=== PATIENT | male | born 1945 | race Caucasian/White ===

== ENCOUNTER → 2022-01-03 15:28 | Outpatient (BNVA) | payer MEDICARE, OTHER, SELFPAY | PROVIDERS: Family Provider Family Medicine; PCP Family Medicine; Referring Provider Family Medicine; Visit Provider Specialist | DX: S82.841A Displaced bimalleolar fracture of right lower leg, initial encounter for closed fracture (principal); S82.201A Unspecified fracture of shaft of right tibia, initial encounter for closed fracture; S82.435A Nondisplaced oblique fracture of shaft of left fibula, initial encounter for closed fracture; X58.XXXA Exposure to other specified factors, initial encounter; Z20.822 Contact with and (suspected) exposure to COVID-19 | CPT/HCPCS: 73590; 73610; 87635 ==

== ENCOUNTER 2022-01-07 08:46 | Day surgery (SDC) | payer MEDICARE, OTHER, SELFPAY ==
[2022-01-06 15:21] VITALS: BMI 27.1
[2022-01-07] VITALS (7 sets, daily range): BP systolic 89–147; BP diastolic 57–83; PULSE 61–66; RESP 16–18; TEMP 36.1–36.6; O2SAT 91–96
--- NOTE | 2022-01-07 | XR_ITS ---
WS: [id number] Exam: XR ankle RT 2V [id number] Date/Time of Exam: 01/07/2022 12:00 AM Reason For Exam: Bimalleolar right ankle fracture AP and lateral intraoperative images of the right ankle are submitted for evaluation. There is plate and screw fixation involving a fracture of the lower fibula. The fracture appears to b e in satisfactory position for healing. Again noted is a comminuted fracture of the medial malleolus. There is asymmetry of the ankle mortise. Pre-existing hardware seen in the lower tibia at the site of the a healed fracture.
--- NOTE | 2022-01-07 | SCC_ITS ---
Procedure done: Takedown malunion right fibula fracture with open reduction internal fixation 93.7 seconds of fluoroscopic guidance, for a cumulative dose of 1.76 mGy, was provided to Dr. Byrd by the radiology department. C-arm images of the right ankle were saved for the patient's permanent record. [facility]
[2022-01-07] MEDS: CELEcoxib 200 mg Capsule 400 MG PO (09:57)
[2022-01-07] MEDS: sodium chloride 0.9% 1,000 ML 30 ML IV (09:58)
[2022-01-07] MEDS: acetaminophen 1,000 MG/100 ML PIGGYBACK 400 MG IV (09:58)
--- NOTE | 2022-01-07 10:00 | P.HPUD_ITS ---
Surgery/Procedure H&P Update DATE OF PROCEDURE: January 07, 2022 DATE H&P PERFORMED: 01/03/22 H&P UPDATE INFORMATION: I have reviewed H&P completed within last 30 days, I have examined patient prior to procedure, No changes to prior documentation and H&P is in [facility] EMR on date indicated PREOP DIAGNOSIS: Right bimalleolar ankle fracture PLANNED PROCEDURE: Operation Date: 01/07/22 11:00 Proposed Procedures p ORIF Bimalleolar right ankle with possible hardware removal 38041/s82.841(Right) - Coby Byrd MD Related Problem List Diagnoses (1) Bimalleolar fracture of right ankle: Qualifiers: Encounter type: initial encounter Fracture type: closed Qualified Code(s): S82.841A - Displaced bimalleolar fracture of right lower leg, initial encounter for closed fracture
[2022-01-07 10:04] LABS: Add Urine Microscopic? NO; Charge for UA Resulting for Rev
[2022-01-07 10:07] LABS: Basophils # 0.1 10^3/uL (0.0-0.1); Basophils % 1.5 %; Eosinophils # 0.4 10^3/uL (0.0-0.8); Eosinophils % 6.8 %; Hematocrit 41.4 % (42.0-52.0); Hemoglobin 13.5 g/dL (11.7-16.6); Lymphocytes # 1.1 10^3/uL (0.8-4.8); Lymphocytes % 20.3 %; Mean Corpuscular HGB Conc 32.6 g/dL (30.0-36.0); Mean Corpuscular Hemoglobin 32.6 pg (28.0-34.0); Mean Platelet Volume 10.5 fL (7.4-10.4); Monocytes # 0.7 10^3/uL (0.2-0.9); Monocytes % 12.2 %; Neutrophils # 3.22 10^3/uL (1.8-7.7); Neutrophils % 58.8 %; Nucleated Red Blood Cells % 0 %; Platelet Count 235 10^3/cmm (130-400); Red Blood Count 4.14 10^6/uL (4.1-5.3); Red Cell Distribution Width 12.4 % (12.1-15.1); White Blood Count 5.5 10^3/uL (4.0-10.0)
[2022-01-07 10:21] LABS: Bilirubin Urine Neg (Negative); Blood Urine Neg (Negative); Glucose Urine UA Norm (Normal); Ketones Urine Negative (Negative); Leukocyte Esterase Urine Negative (Negative); Nitrate Urine Negative (Negative); Protein Urine Neg (Negative); Urine Appearance Clear (CLEAR); Urine Color Yellow (Yellow); Urobilinogen Urine Norm (Negative); pH Urine 5 (5-7)
[2022-01-07 10:27] LABS: Alanine Aminotransferase 27 U/L (0-41); Albumin Level 4.2 g/dL (3.5-5.2); Alkaline Phosphatase 144 IU/L (40-130); Anion Gap 17.6 (5-19); Aspartate Amino Transferase 28 U/L (0-40); Blood Urea Nitrogen 20 mg/dL (8-23); Calcium 9.6 mg/dL (8.5-10.5); Carbon Dioxide 24 mmol/L (22-29); Chloride 104 mmol/L (98-107); Creatinine Clr Calc Pharmacy 92.3088; Globulin 2.9 g/dL (1.3-4.6); Glucose 94 mg/dL (65-115); Osmolality Calculated 294 mOsm/kg (285-295); Potassium 4.6 mmol/L (3.5-5.1); Sodium 141 mmol/L (136-145); Total Bilirubin 0.5 mg/dL (0.15-1.2); Total Protein 7.1 g/dL (6.6-8.7)
--- NOTE | 2022-01-07 10:37 | ANES.PREANE2 ---
Pre-Anesthetic Assessment Height/Weight: Height 1.8 m Weight 88.451 kg Temp Pulse Resp BP Pulse Ox 97.8 F 64 18 114/74 96 01/07/22 09:21 01/07/22 09:21 01/07/22 09:21 01/07/22 09:21 01/07/22 09:21 Preop Diagnosis: Right bimalleolar ankle fracture Operation Date: 01/07/22 11:00 Proposed Procedures p ORIF Bimalleolar right ankle with possible hardware removal 92302/s82.841(Right) - Coby Byrd MD Familial anesthetic complications: None Was Beta Mary taken within 24 hours: Yes Was Clonidine taken within 24 hours: N/A Last intake: Intake Last Liquid Date 01/06/22 Last Liquid Time 06:00 Last Solid Date 01/06/22 Last Solid Time 18:00 Social Tobacco (chews) and No alcohol former hx of etoh abuse Exam alert, oriented x 3, clear to auscultation bilaterally and regular rate & rhythm Airway Dentition: chipped Pulmonary None reported CV/HEM Coronary Artery Disease (stents), Congestive Heart Failure (EF 45% in 2010), Deep Vein Thrombosis and Hypertension Pacer/ICD for over 10 years None reported Hepatic None reported Metabolic Hyperlipidemia and Thyroid Disease Anesthetic Plan ASA status: 4 Anesthesia: General and Regional (specify below) Medications/Allergies Home Medications Medication Instructions Recorded Confirmed Last Taken Type amiodarone 200 mg tablet 200 mg PO DAILY 01/06/22 01/07/22 01/07/22 History aspirin 81 mg capsule 81 mg PO DAILY 01/06/22 01/07/22 01/06/22 History atorvastatin 40 mg tablet (Lipitor) 40 mg PO DAILY 01/06/22 01/07/22 01/06/22 History bisacodyl 10 mg rectal suppository 10 mg NV DAILY PRN 01/06/22 01/07/22 01/06/22 History carvedilol 6.25 mg tablet 6.25 mg PO BID 01/06/22 01/07/22 01/07/22 History docusate sodium 100 mg capsule 100 mg PO DAILY 01/06/22 01/07/22 01/06/22 History (Colace) flurazepam 15 mg capsule 15 mg PO DAILY 01/06/22 01/07/22 01/06/22 History fluticasone propionate 50 1 spray INTRANASAL DAILY 01/06/22 01/07/22 01/06/22 History mcg/actuation nasal spray,suspension furosemide 20 mg tablet 20 mg PO DAILY 01/06/22 01/07/22 01/06/22 History gabapentin 300 mg capsule 300 mg PO DAILY 01/06/22 01/07/22 01/06/22 History levothyroxine 50 mcg tablet 50 mcg PO DAILY 01/06/22 01/07/22 01/06/22 History magnesium hydroxide 400 mg/5 mL 400 mg PO DAILY 01/06/22 01/07/22 01/06/22 History oral suspension (Milk of Magnesia) oxycodone-acetaminophen 10 mg-325 1 tab PO Q4H PRN 01/06/22 01/07/22 01/06/22 History mg tablet polyethylene glycol 3350 17 gram 17 g PO DAILY 01/06/22 01/07/22 01/06/22 History oral powder packet (Miralax) quinapril 10 mg tablet 10 mg PO DAILY 01/06/22 01/07/22 01/07/22 History sennosides 8.6 mg-docusate sodium 1 tab-cap PO DAILY 01/06/22 01/07/22 01/06/22 History 50 mg tablet (Senna-S) sertraline 50 mg tablet 50 mg PO DAILY 01/06/22 01/07/22 01/06/22 History sodium phosphates 19 gram-7 118 ml NV DAILY PRN 01/06/22 01/06/22 Unknown History gram/118 mL enema (Enema Disposable) Allergies Allergy/AdvReac Type Severity Reaction Status Date / Time Sulfa (Sulfonamide Allergy ALGY-Redness Verified 01/03/22 15:59 Antibiotics) of Skin Current Medications Generic Name Dose Route Start Last Admin Trade Name Freq PRN Reason Stop Dose Admin Sodium Chloride 1,000 mls @ 30 mls/hr 01/07/22 09:45 01/07/22 09:58 Sodium Chloride 0.9% IV 30 mls/hr .Q24H BUTCH Administration PFSH Anesthesia Social History Smoking and tobacco status: never smoked Data Anesthesia : 01/07/22 09:50 01/07/22 09:50 Short CBC 01/07/22 Range/Units 09:50 WBC 5.5 (4.0-10.0) 10^3/uL Hgb 13.5 (11.7-16.6) g/dL Hct 41.4 L (42.0-52.0) % MCV 100.0 H (80-94) fl Plt Count 235 (130-400) 10^3/cmm Neut % (Auto) 58.8 % Neut # (Auto) 3.22 (1.8-7.7) 10^3/uL BMP 01/07/22 09:50 Sodium 141 Potassium 4.6 Chloride 104 Carbon Dioxide 24 BUN 20 Creatinine 0.8 Glucose 94 Calcium 9.6 Liver Function 01/07/22 Range/Units 09:50 Total Bilirubin 0.5 (0.15-1.2) mg/dL AST 28 (0-40) U/L ALT 27 (0-41) U/L Alkaline Phosphatase 144 H (40-130) IU/L Albumin 4.2 (3.5-5.2) g/dL Urine 01/07/22 Range/Units 09:50 Urine Color Yellow (Yellow) Urine Appearance Clear (CLEAR) Urine pH 5 (5-7) Ur Specific [place] 1.010 (1.005-1.030) Urine Protein Neg (Negative) Urine Glucose (UA) Norm (Normal) Urine Ketones Negative (Negative) Urine Nitrate Negative (Negative) Urine Bilirubin Neg (Negative) Ur Leukocyte Esterase Negative (Negative) Cardiac Studies: No Data to Display
--- NOTE | 2022-01-07 10:39 | ANES.PROC ---
Anesthesia Procedures Procedure/Date: 01/07/22 Nerve Block ^: Nerve Block 1: Main Anesthesia: general anesthesia Time Out Performed: Yes Consent: requested by attending/covering physician, from patient, risks and benefits reviewed and patient agrees to proceed Anesthesia monitors applied: pulse oximetry, EKG, BP cuff and oxygen Nerve block position: supine Anesthetic Used: ropivicaine 0.5% (30) and with decadron (4 mg) Ultrasound used to: recognize landmarks Nerve Stimulator Used?: Yes Interscalene/Femoral BLK: 4 stimuplex 21 g needle used for position and inplane approach, visualize local anesthetic spread and no vascular puncture identified Injection: neg aspiration of heme Patient Tolerated Procedure: well and no complications Complications: none
[2022-01-07] MEDS: vancomycin 1,000 MG in sodium chloride 0.9% 250 ML 250 MG IV (11:00)
[2022-01-07] MEDS: ceFAZolin 1,000 mg SDV 1000 MG IRRIGATION (12:46)
--- NOTE | 2022-01-07 13:53 | P.OP_ITS ---
Operative Report Date of procedure: January 07, 2022 Pre-op diagnosis: Right bimalleolar ankle fracture with early malunion Post-op diagnosis: Right bimalleolar ankle fracture with early malunion Post-op findings: Early union of right fibular fracture. Subluxed talus and displaced medial malleolar fracture. Procedure done: Takedown malunion right fibula fracture with open reduction internal fixation Implants: Pat lateral fibular plate, 9 hole Specimens removed/disposition: None Pathology: none sent Surgeon: Coby Byrd Molder Machine Tender: [facility] operating room technicians Anesthesia: General (LMA, ASA 4) Estimated blood loss (mL): 10 Tourniquet time (min): 70 (At 250 mmHg) IV fluids (mL): 500 Urine output (mL): 0 (No Roberts) Complications: None Findings: Early healing with malunion right distal fibula fracture, talar subluxation, comminuted medial malleolar fracture. Condition: stable Disposition: PACU (Then return to preop for discharge back to skilled facility) Brief History: This 76-year-old gentleman was known to me from a remote distal tibia fracture for which he underwent open reduction internal fixation. Most recently, the patient had a fall and upon admission to the [facility] emergency department, the patient was found to have a comminuted bimalleolar ankle fracture on the same side as his previous ORIF of the distal tibia. Additionally, from another injury slightly before that, he had a left distal fibula fracture which was stable. Patient was seen in the office and decision was made to proceed with operative intervention. Risks and complications were discussed with him. Consents were signed. He was supposed to have the surgery earlier this week, but secondary to inclement weather, he was not able to be transported from the skilled facility where he resides. He presents today for definitive treatment. Discussion was undertaken regarding medial and lateral plating of this fracture, but after discussion with him, we have elected to proceed with only plating of the lateral fibula with a takedown of his early malunion. Procedure: Patient was seen in the preoperative holding area and the right leg was marked. Patient was brought to the operating theater and placed on the operating room table. After undergoing adequate general anesthesia per LMA, ASA 4 anesthesia, the patient's right lower extremity was prepped and draped in usual fashion utilizing DuraPrep. The leg was draped free. Fluoroscopy was used throughout the surgical procedure. We did have a tourniquet high on the right lower extremity. This was elevated to 250 mmHg and total tourniquet time was 70 minutes. Tourniquet elevation followed exsanguination of the leg. A surgical pause was performed. At the time of the surgical pause we identified the site and side of surgery as well as the patient's identity and availability of equipment. We also confirmed appropriate administration of IV antibiotics. Following the above, an incision was made centering over the patient's distal fibula fracture which extended significantly up the shaft of the fibula. There was early healing and displacement of the fracture with angulation. Prior to incision, appropriate plate size was evaluated, but subsequently, we had to increase the length of the plate due to further comminution that could be appreciated on x-ray. The incision was continued proximally distally to access the lateral fibula. We also manipulated the fracture under fluoroscopy to determine whether or not we were able to reduce the mortise. We were happy that we had movement of the talus and were able to effectively reduce the mortise to a acceptable position. The fracture was evaluated, and there was significant early healing, but this was healing in a position of malunion. Therefore the fracture callus had to be removed and the nonunion/malunion was taken down. The appropriate plate length was decided upon, and we actually used a 9 hole lateral fibular plate from the [employer]. This was the longest plate in the ankle set. We were able to place the plate and hold it with 2 K wires while evaluation of position was able to be assessed on fluoroscopy both in AP and lateral planes. We then clamped it with lobster-claw clamps once the complete fibrous tissue of the attempted union was removed. With the plate in position, this helped to correct the fracture malalignment. We were able to distract the fracture and rotate enough to get near anatomic position. Screws were then placed into the plate to hold this in the appropriate position. Screws were placed proximally and distally with care being taken to assure sufficient fixation above and below the fracture. We assessed the reduction and the screw lengths utilizing fluoroscopy. Being satisfied with the position of the fracture and reduction of the mortise, attention was directed to closure. AP and lateral imaging was accomplished prior to closure as well. 0 Vicryl was used in the fascial tissues. The subcutaneous tissues were closed with 2-0 Monocryl. The skin was closed with skin sánchez. This was followed by Dermabond and OpSite. A pressure dressing was placed with 4 x 4's, sterile soft roll, and Leonid wrap. The patient was placed in his cam boot. The procedure was well tolerated without complication. Tourniquet time was 70 minutes at 250 mmHg. The patient will be discharged home to follow-up in my office as scheduled. Related Problem List Diagnoses (1) Bimalleolar fracture of right ankle: (2) Left fibular fracture:
--- NOTE | 2022-01-07 14:02 | ANE.PACU2 ---
Inpatient post-anesthesia follow up: Airway intact: Yes Vital signs: Temperature 97.8 F Pulse Rate 64 Respiratory Rate 18 Blood Pressure 114/74 Pulse Oximetry 96 Oxygen Delivery Me thod Room Air Oxygen Flow Rate Fraction of Inspir ed Oxygen Hydration adequate: Yes Nausea and vomiting: No Pain level: 1 Mental status: Baseline
== END 2022-01-07 15:20 | disposition home or self-care (01) ==
PROVIDERS: PCP Family Medicine; Visit Provider Specialist
PROC: (CPT 27726; principal; 2022-01-07 11:00)
DX: S82.841A Displaced bimalleolar fracture of right lower leg, initial encounter for closed fracture (principal); S82.832A Other fracture of upper and lower end of left fibula, initial encounter for closed fracture; W19.XXXA Unspecified fall, initial encounter; F17.220 Nicotine dependence, chewing tobacco, uncomplicated; Z95.5 Presence of coronary angioplasty implant and graft; I25.10 Atherosclerotic heart disease of native coronary artery without angina pectoris; I11.0 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 heart disease with heart failure; I50.9 Heart failure, unspecified; E78.5 Hyperlipidemia, unspecified; Z79.82 Long term (current) use of aspirin
CPT/HCPCS: 27726; 36415; 64450; 73600; 76000; 76942; 80053; 81003; 85025; 96367; 96374; C1713; J0690; J1100; J2405; J2704; J2795; J3010; J3370; J7030; J7050

== ENCOUNTER → 2022-01-19 08:06 | Outpatient (BNVA) | payer OTHER, MEDICARE, SELFPAY | PROVIDERS: PCP Family Medicine; Visit Provider Specialist | DX: S82.831A Other fracture of upper and lower end of right fibula, initial encounter for closed fracture (principal); S82.51XA Displaced fracture of medial malleolus of right tibia, initial encounter for closed fracture; X58.XXXA Exposure to other specified factors, initial encounter; S82.231D Displaced oblique fracture of shaft of right tibia, subsequent encounter for closed fracture with routine healing; X58.XXXD Exposure to other specified factors, subsequent encounter; Z98.890 Other specified postprocedural states; Z87.81 Personal history of (healed) traumatic fracture | CPT/HCPCS: 73610 ==

== ENCOUNTER → 2022-02-09 09:54 | Outpatient (BNVA) | payer OTHER, MEDICARE, SELFPAY | PROVIDERS: PCP Family Medicine; Visit Provider Specialist | DX: S82.432D Displaced oblique fracture of shaft of left fibula, subsequent encounter for closed fracture with routine healing (principal); S82.831D Other fracture of upper and lower end of right fibula, subsequent encounter for closed fracture with routine healing; S82.51XD Displaced fracture of medial malleolus of right tibia, subsequent encounter for closed fracture with routine healing; X58.XXXD Exposure to other specified factors, subsequent encounter; Z48.89 Encounter for other specified surgical aftercare; Z98.890 Other specified postprocedural states | CPT/HCPCS: 73590; 73610 ==

== ENCOUNTER → 2022-02-28 11:33 | Outpatient (BNVA) | payer OTHER, MEDICARE, SELFPAY | PROVIDERS: PCP Family Medicine; Visit Provider Specialist | DX: S82.841D Displaced bimalleolar fracture of right lower leg, subsequent encounter for closed fracture with routine healing (principal); X58.XXXD Exposure to other specified factors, subsequent encounter; M21.6X9 Other acquired deformities of unspecified foot; Z87.891 Personal history of nicotine dependence | CPT/HCPCS: 73610 ==

== ENCOUNTER → 2022-03-04 12:32 | Outpatient (BNVA) | payer MEDICARE, OTHER, SELFPAY | PROVIDERS: PCP Family Medicine; Referring Provider Specialist; Visit Provider Podiatrist Foot & Ankle Surgery | DX: M76.821 Posterior tibial tendinitis, right leg (principal); Z87.891 Personal history of nicotine dependence; M76.829 Posterior tibial tendinitis, unspecified leg | CPT/HCPCS: 99203; 99204 ==

== ENCOUNTER → 2022-04-06 14:08 | Outpatient (BNVA) | payer MEDICARE, OTHER, SELFPAY | PROVIDERS: PCP Family Medicine; Visit Provider Specialist | DX: M17.11 Unilateral primary osteoarthritis, right knee (principal); M25.561 Pain in right knee; M25.571 Pain in right ankle and joints of right foot; M76.821 Posterior tibial tendinitis, right leg | CPT/HCPCS: 20610; 73560; 73565; 99213; 99214; J7326 ==

== ENCOUNTER → 2022-04-14 09:31 | Outpatient (BNVA) | payer MEDICARE, OTHER, SELFPAY | PROVIDERS: PCP Family Medicine; Visit Provider Specialist | DX: S82.841D Displaced bimalleolar fracture of right lower leg, subsequent encounter for closed fracture with routine healing (principal); X58.XXXD Exposure to other specified factors, subsequent encounter | CPT/HCPCS: 73610; 99213 ==

== ENCOUNTER → 2022-06-07 13:53 | Outpatient (BNVA) | payer MEDICARE, OTHER, SELFPAY | PROVIDERS: PCP Family Medicine; Visit Provider Podiatrist Foot & Ankle Surgery | DX: M25.571 Pain in right ankle and joints of right foot (principal); M76.821 Posterior tibial tendinitis, right leg | CPT/HCPCS: 99213 ==

== ENCOUNTER → 2024-12-02 13:52 | Outpatient (BNVA) | payer MEDICARE, OTHER, SELFPAY | PROVIDERS: PCP Family Medicine; Visit Provider Thoracic Surgery (Cardiothoracic Vascular Surgery) | DX: I87.2 Venous insufficiency (chronic) (peripheral) (principal); L97.322 Non-pressure chronic ulcer of left ankle with fat layer exposed; L97.811 Non-pressure chronic ulcer of other part of right lower leg limited to breakdown of skin; L97.411 Non-pressure chronic ulcer of right heel and midfoot limited to breakdown of skin | CPT/HCPCS: 11042; 97597; 99203 ==

== ENCOUNTER → 2024-12-09 14:25 | Outpatient (BNVA) | payer MEDICARE, OTHER, SELFPAY | PROVIDERS: PCP Family Medicine; Visit Provider Thoracic Surgery (Cardiothoracic Vascular Surgery) | DX: I96 Gangrene, not elsewhere classified (principal); I87.2 Venous insufficiency (chronic) (peripheral); L97.811 Non-pressure chronic ulcer of other part of right lower leg limited to breakdown of skin; L97.311 Non-pressure chronic ulcer of right ankle limited to breakdown of skin; L97.321 Non-pressure chronic ulcer of left ankle limited to breakdown of skin | CPT/HCPCS: 97597; A6212 ==

== ENCOUNTER → 2024-12-16 13:30 | Outpatient (BNVA) | payer MEDICARE, OTHER, SELFPAY | PROVIDERS: PCP Family Medicine; Visit Provider Thoracic Surgery (Cardiothoracic Vascular Surgery) | DX: I87.2 Venous insufficiency (chronic) (peripheral) (principal); L97.811 Non-pressure chronic ulcer of other part of right lower leg limited to breakdown of skin; L97.411 Non-pressure chronic ulcer of right heel and midfoot limited to breakdown of skin; L97.321 Non-pressure chronic ulcer of left ankle limited to breakdown of skin | CPT/HCPCS: 97597; A6212 ==

== ENCOUNTER → 2024-12-23 13:39 | Outpatient (BNVA) | payer MEDICARE, OTHER, SELFPAY | PROVIDERS: PCP Family Medicine; Visit Provider Thoracic Surgery (Cardiothoracic Vascular Surgery) | DX: I87.2 Venous insufficiency (chronic) (peripheral) (principal); L97.811 Non-pressure chronic ulcer of other part of right lower leg limited to breakdown of skin; L97.411 Non-pressure chronic ulcer of right heel and midfoot limited to breakdown of skin; L97.321 Non-pressure chronic ulcer of left ankle limited to breakdown of skin | CPT/HCPCS: 97597; A6220 ==

== ENCOUNTER 2025-01-01 15:25 | Inpatient (IN) | payer MEDICARE, SELFPAY ==
[2025-01-01] VITALS (34 sets, daily range): BP systolic 96–131; BP diastolic 52–72; PULSE 64–119; RESP 14–26; TEMP 36.4–36.8; O2SAT 92–97; BMI 25.8; BMI 26.1
--- NOTE | 2025-01-01 15:30 | XR_ITS ---
WS: [id number] Exam: XR chest 1V portable [id number] Date/Time of Exam: 01/01/2025 3:40 PM Reason For Exam: dyspnea/cough Comparison 03/15/2018. Lungs are fully inflated and clear. Slight plaque atelectasis in the LEFT base. Heart size is within normal limits. The mediastinum is normal in contour. A permanent cardiac pacer superimposes the LEFT chest. Bony structures are intact. XR/XR chest 1V portable [id number] IMPRESSION: 1. No acute cardiopulmonary finding.
[2025-01-01 15:44] LABS: Basophils % 0.2 %; Eosinophils # 0.1 10^3/uL (0.0-0.8); Eosinophils % 1.2 %; Hematocrit 33.9 % (37-53); Lymphocytes # 0.7 10^3/uL (0.8-4.8); Lymphocytes % 14.3 %; Mean Corpuscular HGB Conc 34.8 g/dL (30-55); Mean Corpuscular Hemoglobin 34.9 pg (27-33); Mean Corpuscular Volume 100.3 fl (82-101); Mean Platelet Volume 12.4 fL (7.4-10.4); Monocytes # 0.5 10^3/uL (0.2-0.9); Monocytes % 10.3 %; Neutrophils # 3.66 10^3/uL (1.8-7.7); Neutrophils % 73.6 %; Nucleated Red Blood Cells % 0 %; Platelet Count 49 10^3/cmm (157-399); Red Blood Count 3.38 10^6/uL (3.85-5.65); Red Cell Distribution Width 16.1 % (12.1-15.1); White Blood Count 4.97 10^3/uL (3.29-11.43)
--- NOTE | 2025-01-01 15:49 | ECG_ITS ---
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 Measurements Intervals [place] Rate: 77 P: 0 ID: 0 QRS: -35 QRSD: 184 T: 148 QT: 508 QTc: 577 Interpretive Statements UNCERTAIN REGULAR RHYTHM LEFT AXIS DEVIATION [QRS AXIS < -30] LEFT BUNDLE BRANCH BLOCK [120+ ms QRS DURATION, 80+ ms Q/S IN V1/V2, 85+ ms R IN I/aVL/V5/V6] Compared to ECG 03/15/2018 11:12:34 Sinus rhythm no longer present Electronically Signed On 01-02-2025 17:52:19 SCRAP DROP ENGINEER by Scott Valdivia M.D. [email or web address]
--- NOTE | 2025-01-01 15:53 | W.ED.AMS ---
HPI - Altered Mental Status General: Chief Complaint: Altered Mental Status Stated Complaint: AMS Time Seen by Provider: 01/01/25 15:29 History of Present Illness: 79-year-old male presents to the emergency room with complaints of confusion. Patient states that I am old and disoriented. He admits to drinking regularly. He tells me he drinks about 4-5 beers a day +1/2 of a bottle of whiskey nearly daily. He denies any cough or shortness of breath denies chest pain or abdominal pain no dysuria urgency or frequency. Patient denies dysuria urgency or frequency. Patient is generally rather unkempt. He does answer all questions. However he for the most part has a negative review of systems. He has several ulcers on his feet that are covered they have foam wound care bandages in place. None appear to be acutely infected at this time only members at the bedside. Related Data Home Medications ?Medication ?Instructions ?Recorded ?Confirmed bisacodyl 10 mg rectal suppository 10 mg IN DAILY PRN Constipation 01/06/22 01/01/25 carvedilol 6.25 mg tablet 6.25 mg PO BID 01/06/22 01/01/25 docusate sodium 100 mg capsule 100 mg PO DAILY 01/06/22 01/01/25 (Colace) furosemide 20 mg tablet 20 mg PO DAILY 01/06/22 01/01/25 magnesium hydroxide 400 mg/5 mL 400 mg PO DAILY 01/06/22 01/01/25 oral suspension (Milk of Magnesia) oxycodone-acetaminophen 10 mg-325 1 tab PO Q4H PRN Pain 01/06/22 01/01/25 mg tablet polyethylene glycol 3350 17 gram 17 g PO DAILY 01/06/22 01/01/25 oral powder packet (Miralax) sennosides 8.6 mg-docusate sodium 1 tab-cap PO DAILY 01/06/22 01/01/25 50 mg tablet (Senna-S) sodium phosphates 19 gram-7 118 ml IN DAILY PRN Constipation 01/06/22 01/01/25 gram/118 mL enema (Enema Disposable) terazosin 1 mg capsule 1 mg PO DAILY 01/01/25 01/01/25 trazodone 50 mg tablet 50 mg PO DAILY 01/01/25 01/01/25 Previous Rx's ?Medication ?Instructions ?Recorded AFO for Right ankle #1 ea 03/04/22 Allergies Allergy/AdvReac Type Severity Reaction Status Date / Time Sulfa (Sulfonamide Allergy ALGY-Redness Verified 06/07/22 14:24 Antibiotics) of Skin Review of Systems Const: Denies: fever(s) or chills Card: Denies: chest pain Resp: Denies: dyspnea GI: Denies: abdominal pain : Denies: dysuria, urinary frequency or urinary urgency Musc: Denies: neck pain or back pain Skin/Breast: Denies: rash PFSH ED PFSH: Medical History (Updated 01/03/25 @ 17:02 by Jaskaran Sheets DO) PTTD (posterior tibial tendon dysfunction) Primary osteoarthritis of right knee Left fibular fracture Bimalleolar fracture of right ankle Benign prostatic hyperplasia without lower urinary tract symptoms Constipation Gastro-esophageal reflux disease without esophagitis Generalized anxiety disorder 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 heart disease with heart failure Insomnia 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 Muscle weakness Fracture of right lower leg Repeated falls Chronic embolism and thrombosis of unspecified deep veins of right lower extremity Hyperlipidemia Hypothyroidism Alcohol abuse Atherosclerotic cardiovascular disease Major depressive disorder Social History Smoking and tobacco/nicotine status: former use of tobacco/nicotine Physical Exam Const: GENERAL APPEARANCE: cooperative ORIENTATION/CONSCIOUSNESS: Yes awake HENMT: COMMON NORMALS: normocephalic and atraumatic HEAD & SCALP: normocephalic and atraumatic Resp: COMMON NORMALS: normal respiratory effort, No retractions, No use of accessory muscles and clear to auscultation bilaterally AUSCULTATION: clear to auscultation bilaterally Cardio: COMMON NORMALS: regular rate, regular rhythm and No murmurs present (Cardio) RATE: regular rate RHYTHM: regular rhythm GI: COMMON NORMALS: Soft to palpation and No hepatosplenomegaly present AUSCULTATION: Yes normoactive bowel sounds PALPATION: Yes Soft to palpation, No Tenderness to palpation present (GI), No Guarding due to palpation present (GI) and Yes No hepatosplenomegaly present Extremity: COMMON NORMALS: normal to inspection, capillary refill normal, no clubbing, cyanosis or edema, no calf tenderness and no pedal edema Skin: COMMON NORMALS: no rashes or lesions noted GENERAL SKIN EXAM: no rashes or lesions noted Course Vital Signs: Vital signs: Vital Signs Temperature 98.0 F 01/03/25 15:19 Pulse Rate 71 01/03/25 15:19 Respiratory Rate 16 01/03/25 15:36 Blood Pressure 125/75 01/03/25 15:19 Pulse Oximetry 93 01/03/25 15:36 Oxygen Delivery Me thod Room Air 01/03/25 15:19 MDM - Altered Mental Status Medical Decision Making Patient blood alcohol is undetectable current family he drinks very heavily regularly. He is somewhat altered suspect there is some withdrawal associated with his altered mental status. Will place him on observation. Mild acute kidney injury will give IV fluids. Lab Data 01/03/25 04:20 01/03/25 04:20 Radiology Impressions Chest X-Ray 01/01/25 15:30 IMPRESSION: 1. No acute cardiopulmonary finding. Head CT 01/01/25 16:03 IMPRESSION: 1. No acute intracranial findings. 2. Substantial left-sided paranasal sinus mucosal thickening with opacified left frontal ethmoid and moderate mucosal thickening left maxillary sinus. 3. Moderate mucosal thickening sphenoid sinus with internal calcifications which may represent chronic or possibly fungal sinusitis. Gallbladder Ultrasound 01/01/25 16:27 IMPRESSION: 1. 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 2. Enlarged gallbladder measuring 9.5 cm. Query gallbladder hydrops. Laboratory Results WBC 4.97 10^3/uL (3.29-11.43) 01/01/25 15:37 RBC 3.38 10^6/uL (3.85-5.65) L 01/01/25 15:37 Hgb 11.80 g/dL (11.27-16.99) 01/01/25 15:37 Hct 33.9 % (37-53) L 01/01/25 15:37 MCV 100.3 fl (82-101) 01/01/25 15:37 MCH 34.9 pg (27-33) H 01/01/25 15:37 MCHC 34.8 g/dL (30-55) 01/01/25 15:37 RDW 16.1 % (12.1-15.1) H 01/01/25 15:37 Plt Count 49 10^3/cmm (157-399) L 01/01/25 15:37 MPV 12.4 fL (7.4-10.4) H 01/01/25 15:37 Neut % (Auto) 73.6 % 01/01/25 15:37 Lymph % (Auto) 14.3 % 01/01/25 15:37 [place] % (Auto) 10.3 % 01/01/25 15:37 Eos % (Auto) 1.2 % 01/01/25 15:37 Baso % (Auto) 0.2 % 01/01/25 15:37 Neut # (Auto) 3.66 10^3/uL (1.8-7.7) 01/01/25 15:37 Lymph # (Auto) 0.7 10^3/uL (0.8-4.8) L 01/01/25 15:37 [place] # (Auto) 0.5 10^3/uL (0.2-0.9) 01/01/25 15:37 Eos # (Auto) 0.1 10^3/uL (0.0-0.8) 01/01/25 15:37 Baso # (Auto) 0.0 10^3/uL (0.0-0.1) 01/01/25 15:37 Nucleated RBC % (auto) 0 % 01/01/25 15:37 Nucleated RBCs # 0.0 /100WBC 01/01/25 15:37 PT 59.10 SECONDS (12.1-14.9) H 01/01/25 15:37 INR 6.38 (0.8-1.2) H* 01/01/25 15:37 Sodium 133 mmol/L (136-145) L 01/01/25 15:37 Potassium 4.0 mmol/L (3.5-5.1) 01/01/25 15:37 Chloride 89 mmol/L (98-107) L 01/01/25 15:37 Carbon Dioxide 27 mmol/L (22-29) 01/01/25 15:37 Anion Gap 21.0 (5-19) H 01/01/25 15:37 BUN 15 mg/dL (8-23) 01/01/25 15:37 Creatinine 1.9 mg/dL (0.7-1.2) H 01/01/25 15:37 GFR Calculation Not Reportable 01/01/25 15:37 Glucose 60 mg/dL (65-115) L 01/01/25 15:37 Calculated Osmolality 275 mOsm/kg (285-295) L 01/01/25 15:37 Calcium 7.3 mg/dL (8.5-10.5) L 01/01/25 15:37 Total Bilirubin 1.5 mg/dL (0.15-1.2) H 01/01/25 15:37 AST 345 U/L (0-40) H 01/01/25 15:37 ALT 96 U/L (0-41) H 01/01/25 15:37 Alkaline Phosphatase 289 U/L (40-130) H 01/01/25 15:37 Total Protein 5.9 g/dL (6.6-8.7) L 01/01/25 15:37 Albumin 2.3 g/dL (3.5-5.2) L 01/01/25 15:37 Globulin 3.6 g/dL (1.3-4.6) 01/01/25 15:37 Lipase 123 U/L (13-60) H 01/01/25 15:37 Vitamin B12 > 2000 pg/mL (232-1245) H 01/01/25 15:37 Urine Color Dark yellow (Yellow) A 01/01/25 16:55 Urine Appearance Clear (CLEAR) 01/01/25 16:55 Urine pH 5.0 (5-7) 01/01/25 16:55 Ur Specific [place] 1.018 (1.005-1.030) 01/01/25 16:55 Urine Protein Negative (Negative) 01/01/25 16:55 Urine Glucose (UA) Negative (Normal) 01/01/25 16:55 Urine Ketones Negative (Negative) 01/01/25 16:55 Urine Blood Negative (Negative) 01/01/25 16:55 Urine Nitrate Negative (Negative) 01/01/25 16:55 Urine Bilirubin 1+ (Negative) H 01/01/25 16:55 Urine Urobilinogen 1.0 mg/dL (Negative) 01/01/25 16:55 Ur Leukocyte Esterase Negative (Negative) 01/01/25 16:55 Urine RBC 0-4 /hpf (0-2) H 01/01/25 16:55 Urine WBC 0-4 /hpf (0-5) H 01/01/25 16:55 Ur Squamous Epith Cells 0-4 /hpf (0-5) H 01/01/25 16:55 Urine Bacteria Trace /hpf (NONE) 01/01/25 16:55 Urine Mucus None /hpf 01/01/25 16:55 Salicylates < 0.3 mg/dL (3-10) L 01/01/25 15:37 Urine Opiates Screen Negative ng/mL (Negative) 01/01/25 16:55 Acetaminophen < 5.0 ug/mL (10-30) L 01/01/25 15:37 Ur Barbiturates Screen Negative ng/mL (Negative) 01/01/25 16:55 Ur Phencyclidine Scrn Negative ng/mL (Negative) 01/01/25 16:55 Ur Amphetamines Screen Negative ng/mL (Negative) 01/01/25 16:55 U Benzodiazepines Scrn Negative ng/mL (Negative) 01/01/25 16:55 Urine Cocaine Screen Negative ng/mL (Negative) 01/01/25 16:55 U Marijuana (THC) Screen Negative ng/mL (Negative) 01/01/25 16:55 Ethyl Alcohol < 10 mg/dL (0-10) 01/01/25 15:37 Influenza A (PCR) Negative (Negative) 01/01/25 16:25 Influenza Type B (PCR) Negative (Negative) 01/01/25 16:25 RSV (PCR) Negative (Negative) 01/01/25 16:25 SARS-CoV-2 (PCR) Negative (Negative) 01/01/25 16:25 All radiology interpretation(s) finalized by discharge Discharge Plan Discharge Patient Disposition: Admitted As Inpatient Admit Provider: Eran Russell Clinical Impression: Wernickes encephalopathy, MAGDALENA (acute kidney injury) Condition: Stable Coding Level of Care Code ED Sew On Operator for Juan Knowles
--- NOTE | 2025-01-01 16:03 | CTR_ITS ---
PROCEDURE INFORMATION: Exam: CT Head Without Contrast Exam date and time: 01/01/2025 4:34 PM Age: 79 years old Clinical indication: Altered mental status/memory loss; Confusion or disorientation TECHNIQUE: Imaging protocol: Computed tomography of the head without contrast. Radiation optimization: All CT scans at this facility use at least one of these dose optimization techniques: automated exposure control; mA and/or kV adjustment per patient size (includes targeted exams where dose is matched to clinical indication); or iterative reconstruction. COMPARISON: CT head wo con* [id number] 03/08/2018 6:10 PM RADIATION DOSE METRICS: Total DLP (mGy-cm): 1357.66 FINDINGS: Brain: No intracranial hemorrhage. There is global parenchymal volume loss. Periventricular white matter hypoattenuation is nonspecific but most likely due to small vessel disease. No evidence of acute territorial infarct or cerebral edema. No mass effect or midline shift. Cerebral ventricles: Prominent ventricles likely secondary to volume loss. Paranasal sinuses: Moderate mucosal thickening sphenoid sinus with internal calcifications which may represent chronic or possibly fungal sinusitis. Mastoid air cells: Visualized mastoid air cells are well aerated. Bones: Substantial left-sided paranasal sinus mucosal thickening with opacified left frontal ethmoid and moderate mucosal thickening left maxillary sinus. Soft tissues: Unremarkable. CT/CT head wo con* [id number] IMPRESSION: 1. No acute intracranial findings. 2. Substantial left-sided paranasal sinus mucosal thickening with opacified left frontal ethmoid and moderate mucosal thickening left maxillary sinus. 3. Moderate mucosal thickening sphenoid sinus with internal calcifications which may represent chronic or possibly fungal sinusitis.
[2025-01-01 16:09] LABS: Alanine Aminotransferase 96 U/L (0-41); Albumin Level 2.3 g/dL (3.5-5.2); Alcohol Level < 10 mg/dL (0-10); Alkaline Phosphatase 289 U/L (40-130); Aspartate Amino Transferase 345 U/L (0-40); Blood Urea Nitrogen 15 mg/dL (8-23); Calcium 7.3 mg/dL (8.5-10.5); Carbon Dioxide 27 mmol/L (22-29); Chloride 89 mmol/L (98-107); Creatinine Clr Calc Pharmacy 35.2113; Globulin 3.6 g/dL (1.3-4.6); Glucose 60 mg/dL (65-115); Osmolality Calculated 275 mOsm/kg (285-295); Sodium 133 mmol/L (136-145); Total Bilirubin 1.5 mg/dL (0.15-1.2); Total Protein 5.9 g/dL (6.6-8.7)
--- NOTE | 2025-01-01 16:27 | USR_ITS ---
PROCEDURE INFORMATION: Exam: US Abdomen, Limited; Right Upper Quadrant Exam date and time: 01/01/2025 5:35 PM Age: 79 years old Clinical indication: Abnormal findings; Abnormal lab test; Elevated liver enzymes; Additional info: Elevated t. Bili and liver enzymes TECHNIQUE: Imaging protocol: Real time ultrasound of the abdomen with image documentation. Limited exam focused on the right upper quadrant. COMPARISON: No relevant prior studies available. FINDINGS: Liver: Coarsened nodular appearance of the liver with increased echogenicity. Elevated portal venous flow at 41 cm/s suggestive of portal hypertension. Flow seems to be hepatopetal. Gallbladder: Prominent gallbladder measuring 9.5 cm. No gallstones. There is no gallbladder wall thickening or pericholecystic fluid. Biliary ducts: Common bile duct measures 6 mm. Pancreas: Pancreas is not evaluated secondary to bowel gas. Right kidney: Right kidney measures 9.8 cm. Aorta: Aorta is not evaluated secondary to bowel gas. Inferior vena cava: Grossly normal appearance of the IVC. US/US gall bladder [id number] IMPRESSION: 1. 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 2. Enlarged gallbladder measuring 9.5 cm. Query gallbladder hydrops.
--- NOTE | 2025-01-01 16:52 | PC.PHAR ---
Patient wasn't sure of medications. I verified with Pharmacy. His Pharmacy in [place] is closed . I spoke to [facility], and they verified the last 90day refills.
[2025-01-01 16:59] LABS: Acetaminophen < 5.0 ug/mL (10-30); Salicylate < 0.3 mg/dL (3-10)
[2025-01-01 17:11] LABS: Blood Urine Negative (Negative); Glucose Urine UA Negative (Normal); Ketones Urine Negative (Negative); Nitrate Urine Negative (Negative); Protein Urine Negative (Negative); Specific Gravity, Urine 1.018 (1.005-1.030); Urine Appearance Clear (CLEAR); Urine Color Dark Yellow (Yellow)
[2025-01-01 17:23] LABS: Amphetamines Screen Urine Negative (Negative); Barbiturates Screen Urine Negative (Negative); Benzodiazepines Screen Urine Negative (Negative); Cocaine Screen Urine Negative (Negative); Opiate Screen Urine Negative (Negative); PCP Screen Urine Negative (Negative); THC Screen Urine Negative (Negative)
[2025-01-01 17:27] LABS: Influenza A NEGATIVE (Negative); Influenza B NEGATIVE (Negative); Respiratory Syncytial Virus Ce NEGATIVE (Negative); SARS-CoV-2 PCR NEGATIVE (Negative)
[2025-01-01] MEDS: sodium chloride 0.9% 500 ML 999 ML IV (17:38)
[2025-01-01 17:51] LABS: Bilirubin Urine 1+ (Negative); Leukocyte Esterase Urine Negative (Negative)
[2025-01-01 17:56] LABS: Add Urine Microscopic? YES; UA Manual Slide Review YES; UA Slide Review UA Slide Review Perf
[2025-01-01 17:57] LABS: Add Urine Culture? No; Bacteria Urine TRACE /hpf; RBC Urine 0-4 /hpf (0-2); Squamous Epithelial Cell Urine 0-4 /hpf (0-5); WBC Urine 0-4 /hpf (0-5)
[2025-01-01 18:04] LABS: Lipase 123 U/L (13-60)
--- NOTE | 2025-01-01 19:51 | PM.HP ---
Providers/Chief Complaint Admitting Physician: Eran Russell MD Primary Care Provider: Emanuel Vasquez Chief Complaint: AMS History of Present Illness Nitin Gray is a 79 year old male who present to the hospital with chief complaint of altered mental status, as confusion. Patient is stating that he lives with a friend, uses a walker, patient is stating that he drinks alcohol probably too much, he is endorsing to drinking whiskey half a bottle up to 1 bottle a day, stating that his last alcoholic drink was 2 days ago, he has been experiencing confusion, lethargy, fatigue and extreme weakness that prompted a visit to the ER. Patient is endorsing taking Coumadin for history of blood clots. Patient is stating that he lives with a friend, he is . Workup in the ER consistent with coagulopathy, high INR abnormal transaminases, clinically patient looks unkept Patient also has component of MAGDALENA, abnormal bilirubin with high alkaline phosphatase as well Gallbladder ultrasound consistent with portal hypertension related distended gallbladder Review of Systems Const: Reports: chills Eyes: Denies: change in vision ENMT: Denies: throat pain Card: Denies: chest pain Resp: Reports: dyspnea GI: Reports: nausea : Denies: flank pain Musc: Reports: extremity pain and joint swelling Skin/Breast: Reports: rash and erythema Medications/Allergies Home Medications ?Medication ?Instructions ?Recorded ?Confirmed ?Last Taken ?Type aspirin 81 mg capsule 81 mg PO DAILY 01/06/22 01/01/25 12/31/24 History bisacodyl 10 mg rectal suppository 10 mg PA DAILY PRN Constipation 01/06/22 01/01/25 01/06/22 History carvedilol 6.25 mg tablet 6.25 mg PO BID 01/06/22 01/01/25 12/31/24 History docusate sodium 100 mg capsule 100 mg PO DAILY 01/06/22 01/01/25 12/31/24 History (Colace) furosemide 20 mg tablet 20 mg PO DAILY 01/06/22 01/01/25 01/06/22 History magnesium hydroxide 400 mg/5 mL 400 mg PO DAILY 01/06/22 01/01/25 01/06/22 History oral suspension (Milk of Magnesia) oxycodone-acetaminophen 10 mg-325 1 tab PO Q4H PRN Pain 01/06/22 01/01/2512/31/25 History mg tablet polyethylene glycol 3350 17 gram 17 g PO DAILY 01/06/22 01/01/25 01/06/22 History oral powder packet (Miralax) sennosides 8.6 mg-docusate sodium 1 tab-cap PO DAILY 01/06/22 01/01/25 01/06/22 History 50 mg tablet (Senna-S) sodium phosphates 19 gram-7 118 ml PA DAILY PRN Constipation 01/06/22 01/01/25 Unknown History gram/118 mL enema (Enema Disposable) AFO for Right ankle #1 ea 03/04/22 01/01/25 Unknown Rx terazosin 1 mg capsule 1 mg PO DAILY 01/01/25 01/01/25 12/31/24 History trazodone 50 mg tablet 50 mg PO DAILY 01/01/25 01/01/25 12/31/24 History warfarin 2.5 mg tablet See Rx Instructions .Route .COMPLEX 01/01/25 01/01/25 12/31/24 History Allergies Allergy/AdvReac Type Severity Reaction Status Date / Time Sulfa (Sulfonamide Allergy ALGY-Redness Verified 06/07/22 14:24 Antibiotics) of Skin PFSH Acute PFSH: Medical History (Updated 01/01/25 @ 22:51 by Nicho Burgess MD) PTTD (posterior tibial tendon dysfunction) Primary osteoarthritis of right knee Left fibular fracture Bimalleolar fracture of right ankle Benign prostatic hyperplasia without lower urinary tract symptoms Constipation Gastro-esophageal reflux disease without esophagitis Generalized anxiety disorder 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 heart disease with heart failure Insomnia 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 Muscle weakness Fracture of right lower leg Repeated falls Chronic embolism and thrombosis of unspecified deep veins of right lower extremity Hyperlipidemia Hypothyroidism Alcohol abuse Atherosclerotic cardiovascular disease Major depressive disorder Social History Smoking and tobacco/nicotine status: former use of tobacco/nicotine Vitals/I&O/Wt Last Vital Signs Temp 98.3 F 01/01/25 15:28 Pulse 79 01/01/25 19:00 Resp 20 H 01/01/25 19:00 BP 117/56 01/01/25 19:00 Pulse Ox 96 01/01/25 19:00 O2 Del Method Room Air 01/01/25 18:35 01/01/25 01/01/25 01/01/25 06:59 14:59 22:59 Intake Total 500 / 500 Output Total 200 / 200 Balance 300 / 300 Weight last 48 hrs Weight 81.647 kg Physical Exam Narrative: Patient has unkept appearance Multiple bruises on lower extremities Bilateral extremity edema right greater than left Venous stasis dermatitis Edema right leg Bilateral lower extremity wounds Bilateral extremity edema 2+ Wound of right medial calcaneus without significant bleeding, granulation tissue noted Venous stasis ulcer of right leg Nontender abdomen S1, S2 Currently on room air Patient is able to tell me name of the president, he is able to tell his name, date of oriented to place, and person but not time I do not appreciate any focal deficit Poor attention span but able to answer questions Data 01/01/25 15:37 01/01/25 15:37 A&P Assessment and plan (1) Alcohol myopathy: (2) Wernickes encephalopathy: (3) Coagulopathy: (4) MAGDALENA (acute kidney injury): Plan Alcohol-related myopathy and deconditioning Wernicke's encephalopathy Significant weakness I do not appreciate any signs of stroke Patient may benefit from penitentiary placement Start CIWA protocol Currently hemodynamically stable High alkaline phosphatase, bilirubin Portal hypertension related gallbladder distention Due to his coagulopathy I would hold off on Coumadin dose for now no active signs of bleeding he has multiple petechiae ecchymosis of lower extremities, no active signs of bleed Last alcoholic drink was 48 hours ago as per the patient Right lower extremity DVT history: Hold Coumadin Abnormal transaminases related to alcohol abuse: Ultrasound withdrawal, check ammonia level Patient does have signs of portal hypertension on imaging of abdomen MAGDALENA: Hold off on diuretics for now encourage p.o. 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
[2025-01-01 20:47] LABS: INR 6.38 (0.8-1.2)
[2025-01-01] MEDS: oxyCODONE-APAP 10-325 mg Tablet 1 TAB PO (20:51)
[2025-01-01] MEDS: thiamine 100 mg/mL 2mL SDV IM (20:51)
[2025-01-01 21:28] LABS: Vitamin B12 > 2000 pg/mL (232-1245)
[2025-01-02] VITALS (9 sets, daily range): BP systolic 103–124; BP diastolic 60–77; PULSE 70–87; RESP 15–20; TEMP 36.3–36.5; O2SAT 90–98
[2025-01-02 04:56] LABS: Basophils % 0.4 %; Eosinophils % 0.6 %; Hematocrit 31.5 % (37-53); Lymphocytes % 20.6 %; Mean Corpuscular HGB Conc 34.9 g/dL (30-55); Mean Corpuscular Hemoglobin 35.5 pg (27-33); Mean Corpuscular Volume 101.6 fl (82-101); Mean Platelet Volume 11.8 fL (7.4-10.4); Monocytes # 0.3 10^3/uL (0.2-0.9); Monocytes % 5.8 %; Neutrophils # 3.34 10^3/uL (1.8-7.7); Neutrophils % 72.4 %; Nucleated Red Blood Cells % 0 %; Platelet Count 34 10^3/cmm (157-399); Red Cell Distribution Width 16.6 % (12.1-15.1); White Blood Count 4.62 10^3/uL (3.29-11.43)
[2025-01-02 05:30] LABS: Ammonia 47 umol/L (16-60); Magnesium 1.9 mg/dL (1.7-2.3); Phosphorus 4.6 mg/dL (2.5-4.5)
[2025-01-02 05:34] LABS: Alanine Aminotransferase 86 U/L (0-41); Alkaline Phosphatase 252 U/L (40-130); Anion Gap 16.6 (5-19); Aspartate Amino Transferase 300 U/L (0-40); Blood Urea Nitrogen 17 mg/dL (8-23); Calcium 6.9 mg/dL (8.5-10.5); Carbon Dioxide 28 mmol/L (22-29); Chloride 95 mmol/L (98-107); Globulin 2.9 g/dL (1.3-4.6); Glucose 89 mg/dL (65-115); Osmolality Calculated 283 mOsm/kg (285-295); Potassium 3.6 mmol/L (3.5-5.1); Sodium 136 mmol/L (136-145); Total Bilirubin 1.2 mg/dL (0.15-1.2); Total Protein 4.9 g/dL (6.6-8.7)
[2025-01-02] MEDS: sennosides-docusate Tablet 1 TAB PO (10:41)
[2025-01-02] MEDS: thiamine 100 mg Tablet PO (10:41)
[2025-01-02] MEDS: aspirin 81 mg EC Tablet PO (10:41)
[2025-01-02] MEDS: pantoprazole 40 mg SDV IVP ×2 (10:42→16:57)
[2025-01-02] MEDS: folic acid 1 mg Tablet PO (10:42)
[2025-01-02] MEDS: carvedilol 6.25 mg Tablet PO ×2 (10:42→16:57)
[2025-01-02] MEDS: multivitamin therapeutic Tablet 1 TAB PO (10:42)
--- NOTE | 2025-01-02 16:48 | P.PN_ITS ---
Subjective 2 Subjective: Overnight labs and H&P reviewed. Patient is diagnosed to have liver cirrhosis which is a new diagnosis for him. Medications: Reviewed: Yes Vitals/I&O/Wt Last Vital Signs Temp 97.5 F L 01/02/25 16:00 Pulse 82 01/02/25 16:00 Resp 18 01/02/25 16:00 BP 124/69 01/02/25 16:00 Pulse Ox 98 01/02/25 16:00 O2 Del Method Room Air 01/02/25 16:00 01/02/25 01/02/25 01/02/25 06:59 14:59 22:59 Intake Total 300 / 1020 120 / 120 240 / 360 Balance 300 / 820 120 / 120 240 / 360 Weight last 48 hrs Weight 83.143 kg Weight 84.992 kg Weight 81.647 kg Physical Exam 2 Narrative: General: No acute distress, AO x3 HEENT: PERRLA, pupils bilaterally equal and reactive, pallors not present Chest: Normal vesicular breath sounds, no added sounds, equal good air entry bilaterally CVS: S1-S2 regular, no murmurs, no tachycardia, no gallops, no rubs Abdomen: Soft, nontender, no organomegaly, bowel sounds present Neuro: No focal deficits, no facial deformity, AO x3, power 5/5 in all limbs Data 01/02/25 04:47 01/02/25 04:47 A&P Assessment and plan (1) Alcohol myopathy: (2) Wernickes encephalopathy: (3) Coagulopathy: (4) MAGDALENA (acute kidney injury): Plan Alcohol-related myopathy and deconditioning Wernicke's encephalopathy Significant weakness I do not appreciate any signs of stroke Patient may benefit from custodial placement Start CIWA protocol Currently hemodynamically stable High alkaline phosphatase, bilirubin Portal hypertension related gallbladder distention Due to his coagulopathy I would hold off on Coumadin dose for now no active signs of bleeding he has multiple petechiae ecchymosis of lower extremities, no active signs of bleed Last alcoholic drink was 48 hours ago as per the patient Right lower extremity DVT history: Hold Coumadin Abnormal transaminases related to alcohol abuse: Ultrasound withdrawal, check ammonia level Patient does have signs of portal hypertension on imaging of abdomen MAGDALENA: Hold off on diuretics for now encourage p.o. intake Nondiabetic bilateral lower extremity ulcers They do not look infected at this point patient follow-up with wound care clinic outpatient Full code Cardiac Abnormal History of BPH: Voiding trial in next 24 to 48 hours November 01, 2025 Chart reviewed. Patient seen and examined. Platelet count at 34,000, creatinine 1.5. Ultrasound showing liver cirrhosis. Albumin at 2.0. Overall clinical features are suggestive of chronic liver disease liver cirrhosis with portal hypertension. INR currently at 6.0. Overall correlating with MELD score of 33 with a 52% mortality at 3 months. Above was discussed with his [id number]-fop Ms. Ana Gray who is also his DPOA. This is a new diagnosis of cirrhosis for the patient. Over the past few months he has been noted to have increasing abdominal distention, currently he has multiple bruises. Patient states that recurrent falls and bruises are what brought him to the hospital. He has an enlarged osteoarthritic right knee. No known history of hepatitis. Will request records from Dr. Carrion's office. He has a history of recurrent DVTs and PEs. He also has a history of coronary artery disease and ischemic cardiomyopathy with heart failure for which he has either a pacemaker or AICD. Daughter in law reports a low EF, patient typically follows at [facility]. For now continue to hold off on resuming warfarin. Recheck INR with a.m. labs. Once INR is at 2 risk of resuming anticoagulation will need to be offset by his bleeding risk. [id number] thinks he may have an IVC filter in place. Will discuss with radiology if an IVC filter is visible on the images taken yesterday. Elsewhere may may need to obtain a CT of the abdomen for further information. He has been going to wound care to address his lower extremity wounds. Patient currently lives with his girlfriend, girlfriend's information is not available to obtain additional information. 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
[2025-01-02] MEDS: oxyCODONE-APAP 10-325 mg Tablet 1 TAB PO (16:57)
--- NOTE | 2025-01-02 18:19 | PC.NURSE ---
sister provided a copy of DPOA and HCD. Carburetor Repairer took a copy and placed in chart.
[2025-01-03] VITALS (9 sets, daily range): BP systolic 111–129; BP diastolic 57–75; PULSE 65–84; RESP 15–18; TEMP 36.3–36.7; O2SAT 93–97
[2025-01-03 04:49] LABS: Basophils % 0.1 %; Eosinophils % 0.2 %; Hematocrit 30.9 % (37-53); Lymphocytes # 0.8 10^3/uL (0.8-4.8); Lymphocytes % 10.1 %; Mean Corpuscular HGB Conc 34.6 g/dL (30-55); Mean Corpuscular Hemoglobin 35.8 pg (27-33); Mean Corpuscular Volume 103.3 fl (82-101); Mean Platelet Volume 11.7 fL (7.4-10.4); Monocytes # 0.4 10^3/uL (0.2-0.9); Monocytes % 5.2 %; Neutrophils # 6.77 10^3/uL (1.8-7.7); Neutrophils % 83.8 %; Nucleated Red Blood Cells % 0 %; Platelet Count 38 10^3/cmm (157-399); Red Blood Count 2.99 10^6/uL (3.85-5.65); Red Cell Distribution Width 16.2 % (12.1-15.1); White Blood Count 8.09 10^3/uL (3.29-11.43)
[2025-01-03 05:05] LABS: INR 2.98 (0.8-1.2)
[2025-01-03 05:18] LABS: Alanine Aminotransferase 89 U/L (0-41); Albumin Level 1.9 g/dL (3.5-5.2); Alkaline Phosphatase 241 U/L (40-130); Anion Gap 12.5 (5-19); Aspartate Amino Transferase 258 U/L (0-40); Blood Urea Nitrogen 18 mg/dL (8-23); Calcium 7.5 mg/dL (8.5-10.5); Carbon Dioxide 30 mmol/L (22-29); Chloride 96 mmol/L (98-107); Creatinine Clr Calc Pharmacy 75.1294; Globulin 3.2 g/dL (1.3-4.6); Glucose 103 mg/dL (65-115); Osmolality Calculated 282 mOsm/kg (285-295); Potassium 3.5 mmol/L (3.5-5.1); Sodium 135 mmol/L (136-145); Total Bilirubin 1.3 mg/dL (0.15-1.2); Total Protein 5.1 g/dL (6.6-8.7)
[2025-01-03 05:32] LABS: Hepatitis A Antibody IgM Non-Reactive (Nonreactive); Hepatitis B Core AB, Total Non-Reactive (Nonreactive); Hepatitis B Surface AB < 3.5 (11.5-1000); Hepatitis B Surface Antigen Non-Reactive (Nonreactive); Hepatitis C Virus Antibody Non-Reactive (Nonreactive)
[2025-01-03] MEDS: folic acid 1 mg Tablet PO (07:56)
[2025-01-03] MEDS: pantoprazole DR 40 mg Tablet PO ×2 (07:56→17:20)
[2025-01-03] MEDS: multivitamin therapeutic Tablet 1 TAB PO (07:56)
[2025-01-03] MEDS: thiamine 100 mg Tablet PO (07:56)
[2025-01-03] MEDS: oxyCODONE-APAP 10-325 mg Tablet 1 TAB PO ×3 (07:56→21:48)
[2025-01-03] MEDS: carvedilol 6.25 mg Tablet PO ×2 (07:56→17:20)
[2025-01-03] MEDS: sennosides-docusate Tablet 1 TAB PO (07:56)
--- NOTE | 2025-01-03 09:07 | PC.SOCIAL ---
IMM Updated Updated pt on IMM. No questions voiced. Provided pt a copy. Initialed, dated, & timed a copy & placed in chart.
[2025-01-03] MEDS: LORazepam 2 mg Tablet PO ×2 (15:36→21:48)
--- NOTE | 2025-01-03 16:56 | P.PN_ITS ---
Subjective 2 Subjective: Patient is more alert and awake today. Platelet counts are stable. Creatinine improving. INR down to 2.9. Continue to hold warfarin. Medications: Reviewed: Yes Vitals/I&O/Wt Last Vital Signs Temp 98.0 F 01/03/25 15:19 Pulse 71 01/03/25 15:19 Resp 16 01/03/25 15:36 BP 125/75 01/03/25 15:19 Pulse Ox 93 01/03/25 15:36 O2 Del Method Room Air 01/03/25 15:19 01/03/25 01/03/25 01/03/25 06:59 14:59 22:59 Intake Total 400 / 1180 480 / 480 Balance 400 / 1180 480 / 480 Weight last 48 hrs Weight 80.24 kg Weight 83.143 kg Weight 84.992 kg Physical Exam 2 Narrative: General: No acute distress, AO x3 HEENT: PERRLA, pupils bilaterally equal and reactive, pallors not present Chest: Normal vesicular breath sounds, no added sounds, equal good air entry bilaterally CVS: S1-S2 regular, no murmurs, no tachycardia, no gallops, no rubs Abdomen: Soft, nontender, no organomegaly, bowel sounds present Neuro: No focal deficits, no facial deformity, AO x3, power 5/5 in all limbs Data 01/03/25 04:20 01/03/25 04:20 A&P Assessment and plan (1) Alcohol myopathy: (2) Wernickes encephalopathy: (3) Coagulopathy: (4) MAGDALENA (acute kidney injury): Plan Alcohol-related myopathy and deconditioning Wernicke's encephalopathy Significant weakness I do not appreciate any signs of stroke Patient may benefit from jail placement Start CIWA protocol Currently hemodynamically stable High alkaline phosphatase, bilirubin Portal hypertension related gallbladder distention Due to his coagulopathy I would hold off on Coumadin dose for now no active signs of bleeding he has multiple petechiae ecchymosis of lower extremities, no active signs of bleed Last alcoholic drink was 48 hours ago as per the patient Right lower extremity DVT history: Hold Coumadin Abnormal transaminases related to alcohol abuse: Ultrasound withdrawal, check ammonia level Patient does have signs of portal hypertension on imaging of abdomen MAGDALENA: Hold off on diuretics for now encourage p.o. intake Nondiabetic bilateral lower extremity ulcers They do not look infected at this point patient follow-up with wound care clinic outpatient Full code Cardiac Abnormal History of BPH: Voiding trial in next 24 to 48 hours November 01, 2025 Chart reviewed. Patient seen and examined. Platelet count at 34,000, creatinine 1.5. Ultrasound showing liver cirrhosis. Albumin at 2.0. Overall clinical features are suggestive of chronic liver disease liver cirrhosis with portal hypertension. INR currently at 6.0. Overall correlating with MELD score of 33 with a 52% mortality at 3 months. Above was discussed with his [id number]-pjp Ms. Ana Gray who is also his DPOA. This is a new diagnosis of cirrhosis for the patient. Over the past few months he has been noted to have increasing abdominal distention, currently he has multiple bruises. Patient states that recurrent falls and bruises are what brought him to the hospital. He has an enlarged osteoarthritic right knee. No known history of hepatitis. Will request records from Dr. Carrion's office. He has a history of recurrent DVTs and PEs. He also has a history of coronary artery disease and ischemic cardiomyopathy with heart failure for which he has either a pacemaker or AICD. Daughter in law reports a low EF, patient typically follows at [facility]. For now continue to hold off on resuming warfarin. Recheck INR with a.m. labs. Once INR is at 2 risk of resuming anticoagulation will need to be offset by his bleeding risk. [id number] thinks he may have an IVC filter in place. Will discuss with radiology if an IVC filter is visible on the images taken yesterday. Elsewhere may may need to obtain a CT of the abdomen for further information. He has been going to wound care to address his lower extremity wounds. Patient currently lives with his girlfriend, girlfriend's information is not available to obtain additional information. January 03, 2025 Platelet count is stable today. Patient is more alert and awake today. Able to comprehend the diagnosis of cirrhosis. States that he suspected he has had cirrhosis for a while which is now confirmed. Currently we will continue to hold his warfarin until INR is closer to 2. At the time of resumption his platelet counts would need to be reassessed to see if warfarin may be able to safely resume. Additionally continue to hold aspirin until platelet counts closer to 60-70,000. Confirmed that patient does have an IVC filter in place based on images from CAT scan in 2014. He is overall significantly deconditioned. Has been falling at home. Has multiple bruises. Will likely benefit from continued rehab after discharge. Plan transition to SNF for the same. 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
[2025-01-04] VITALS: BP 119/62; PULSE 67; RESP 18; TEMP 37.2; O2SAT 95
[2025-01-04 03:50] VITALS: BP 143/64; PULSE 69; RESP 17; TEMP 36.6; O2SAT 91
[2025-01-04 05:19] VITALS: BMI 25.7
[2025-01-04 06:04] LABS: Basophils % 0.2 %; Eosinophils # 0.1 10^3/uL (0.0-0.8); Eosinophils % 0.8 %; Hematocrit 30.6 % (37-53); Lymphocytes % 14.6 %; Mean Corpuscular HGB Conc 32.4 g/dL (30-55); Mean Corpuscular Volume 108.1 fl (82-101); Mean Platelet Volume 12.5 fL (7.4-10.4); Monocytes # 0.4 10^3/uL (0.2-0.9); Monocytes % 6.3 %; Neutrophils # 5.05 10^3/uL (1.8-7.7); Neutrophils % 77.8 %; Nucleated Red Blood Cells % 0 %; Platelet Count 46 10^3/cmm (157-399); Red Blood Count 2.83 10^6/uL (3.85-5.65); Red Cell Distribution Width 16.4 % (12.1-15.1); White Blood Count 6.49 10^3/uL (3.29-11.43)
[2025-01-04 06:37] LABS: Alanine Aminotransferase 76 U/L (0-41); Albumin Level 1.9 g/dL (3.5-5.2); Alkaline Phosphatase 227 U/L (40-130); Anion Gap 12.4 (5-19); Aspartate Amino Transferase 176 U/L (0-40); Blood Urea Nitrogen 15 mg/dL (8-23); Calcium 7.4 mg/dL (8.5-10.5); Carbon Dioxide 29 mmol/L (22-29); Chloride 98 mmol/L (98-107); Creatinine Clr Calc Pharmacy 86.0689; Globulin 2.9 g/dL (1.3-4.6); Glucose 77 mg/dL (65-115); Osmolality Calculated 282 mOsm/kg (285-295); Potassium 3.4 mmol/L (3.5-5.1); Sodium 136 mmol/L (136-145); Total Bilirubin 1.1 mg/dL (0.15-1.2); Total Protein 4.8 g/dL (6.6-8.7)
[2025-01-04 06:57] LABS: INR 2.11 (0.8-1.2)
[2025-01-04 07:31] VITALS: BP 111/72; PULSE 111; RESP 17; TEMP 37.1; O2SAT 94
[2025-01-04 10:00] VITALS: PULSE 75; RESP 18; O2SAT 92
[2025-01-04] MEDS: thiamine 100 mg Tablet PO (10:09)
[2025-01-04] MEDS: multivitamin therapeutic Tablet 1 TAB PO (10:09)
[2025-01-04] MEDS: folic acid 1 mg Tablet PO (10:09)
[2025-01-04] MEDS: carvedilol 6.25 mg Tablet PO ×2 (10:10→17:35)
[2025-01-04] MEDS: sennosides-docusate Tablet 1 TAB PO (10:10)
[2025-01-04] MEDS: pantoprazole DR 40 mg Tablet PO ×2 (10:10→17:35)
[2025-01-04 11:38] VITALS: BP 120/73; PULSE 74; RESP 16; TEMP 36.8; O2SAT 92
--- NOTE | 2025-01-04 12:28 | PC.SOCIAL ---
Called [facility] to make sure patient was ok to discharge there today. They stated he was. Med list and discharge paperwork faxed. Brother in the room now will transport patient at discharge.
--- NOTE | 2025-01-04 13:18 | PC.NURSE ---
Report called to ISABELA Womack at [facility].
[2025-01-04] MEDS: acetaminophen 500 mg Tablet PO (13:32)
[2025-01-04 15:43] VITALS: BP 123/62; PULSE 71; RESP 15; TEMP 36.7; O2SAT 94
--- NOTE | 2025-01-04 17:35 | P.DS_ITS ---
Discharge Providers Date of Admission: 01/01/25 20:04 Date of Discharge: January 04, 2025 Attending Provider at Admission: Eran Russell MD Attending Provider at Discharge: Yasmeen Freire MD Primary Care Provider: Emanuel Vasquez Diagnoses at Discharge Discharge Diagnosis (1) Alcohol myopathy: Status: Acute (2) Wernickes encephalopathy: Status: Acute (3) Coagulopathy: Status: Acute (4) MAGDALENA (acute kidney injury): Status: Acute Reason for Visit Reason for Visit: [facility] Hospital Course Hospital Course Nitin Gray is a 79 year old male who present to the hospital with chief complaint of altered mental status, as confusion. Per patient he has been living with a friend recently who was not really able to help him with any of his ADLs. He has had increasing falls over the past 1 month. He has multiple bruises and shallow ulcerations over her left lower extremities for which he has been following up with wound care. Review of their most recent note shows that patient has had a right medial calcaneal wound which has been sheri recently, a right pretibial wound which has been improving with wound care. He has left lateral malleoli additional wounds which are all being addressed by the wound care clinic. He did not have any obvious signs of cellulitis. On this current visit and at the wound care note is made of multiple ecchymosis noted over his back. Even at the wound care clinic he had been reporting multiple falls over the past 1 month. He has been using wheelchair to ambulate. There were concerns for his high fall risk. His wounds have been existing at least since October 2024. These are deemed to be related to venous insufficiency. 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 His INR upon arrival was at 6. Warfarin was discontinued during hospital stay. INR trended down, currently at 2.1. He was additionally noted to have anemia, thrombocytopenia with platelet count down at 34,000 upon admission. He was clinically dehydrated. He had acute kidney injury of 1.5 creatinine which has improved on the day of discharge at 0.5. LFTs were deranged with AST at 300, ALT at 86, alkaline phosphatase at 252, all of which are downtrending at the time of discharge. Right upper quadrant ultrasound was performed which was negative for any gallbladder pathology but showed liver cirrhosis. Patient is known to be a chronic alcohol user, he drinks vodka daily. The diagnosis of liver cirrhosis is a new 1 for him. His deranged LFTs,anemia and thrombocytopenia are all likely related to liver cirrhosis which has now been discovered. Overall correlating with MELD score of 33 with a 52% mortality at [address] of the patient's head showed no acute intracranial findings. Ammonia level was within normal range at 42. His mental status during the course of admission was waxing and waning. On the day of admission patient was able to correctly state his name, date of , the fact that he is in a hospital however was not oriented to time. No focal deficits were appreciated. He had a poor attention span. On my assessment on January 02, 2025, patient was lethargic, he woke up to calling his name and spoke few short sentences. He was able to correctly state his name and birthday however was not able to provide any further details or details beyond saying that he had been falling repeatedly at home. On January 03, patient was much more alert and awake when seen in the afternoon . He was able to tell me that he lived with a female roommate who is not able to help him very much. He had been falling repeatedly at home. He was able to tell me about his history of right leg arthritis, history of DVT and that he has a pacemaker. When I gave him the diagnosis of liver cirrhosis, he stated that he is not surprised and that this was bound to happen . He acknowledged dri nking alcohol chronically over many years. However he was not able to grasp the concept of multiple complications noting portal hypertension, possibility of GI bleed, deranged INR's and hematological abnormalities arising out of his liver cirrhosis. He had limited insight into his prognosis. When reassessed today, patient is more lethargic. Per nursing reports his mentation has waxed and waned during the course of his admission. Case was discussed extensively with his DPOA Nazanin who is his sister and Brenna Gray who is his [id number]. Both are listed on his advance directives and DPOA with Nazanin being the primary DPOA. Discussed with them overall poor prognosis given discovery of liver cirrhosis and high MELD score. Additionally discussed with them the difficulty of continuing anticoagulation with warfarin and continuing aspirin with the presence of thrombocytopenia and deranged INR's. On 1 hand there is a risk of DVT/PE if taken off anticoagulation, however there is also the more imminent risk of bleeding. Patient may potentially have varices since portal hypertension is noted, high risk of GI bleed. We are already noting multiple ecchymosis over his body. Given the risk-benefit ratio, at this time it would be unsafe to continue aspirin and anticoagulation. Patient has an IVC filter which was confrimed with radiology on his prior CT scans. Family understands that being off of aspirin and warfarin puts him at a higher risk of DVT PE and adverse cardiac events, however weighing the risks and benefits they agree with discontinuing both at this time. This may be reassessed 2 weeks down the line if patient shows any recovery of his INR and thrombocytopenia. Cause of his fluctuating mentation likely to be multifactorial including hepatic encephalopathy, Wernicke;s encephalopathy, vs possible vascular dementia (CT is shwoing global parenchymal volume loss. Periventricular white matter hypoattenuation is nonspecific but most likely due to small vessel disease.) vs intermittent ativan and oxycodone use. He is being dicahrged to SNF today for continued rehab in view of recurrent falls,new medications include lactulose and daily thiamine supplementation. D/c oxycodone, Warfarin , ASA and Lasix. Physical Exam Narrative: General: No acute distress HEENT: PERRLA, pupils bilaterally equal and reactive, pallors not present Chest: Normal vesicular breath sounds, no added sounds, equal good air entry bilaterally CVS: S1-S2 regular, no murmurs, no tachycardia, no gallops, no rubs Abdomen: Soft, nontender, no organomegaly, bowel sounds present Neuro: No focal deficits, no facial deformity, AO x1-2, moves all extremities in bed Discharge Data Studies Completed and Pending Completed Studies During Hospitalization Category Date Time Status CT head wo con* [id number] Stat Cat Scan 01/01/25 16:03 Completed XR chest 1V portable [id number] Stat Exams 01/01/25 15:30 Completed US gall bladder [id number] Stat Ultrasound 01/01/25 16:27 Completed Radiology Impressions Chest X-Ray 01/01/25 15:30 IMPRESSION: 1. No acute cardiopulmonary finding. Head CT 01/01/25 16:03 IMPRESSION: 1. No acute intracranial findings. 2. Substantial left-sided paranasal sinus mucosal thickening with opacified left frontal ethmoid and moderate mucosal thickening left maxillary sinus. 3. Moderate mucosal thickening sphenoid sinus with internal calcifications which may represent chronic or possibly fungal sinusitis. Gallbladder Ultrasound 01/01/25 16:27 IMPRESSION: 1. 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 2. Enlarged gallbladder measuring 9.5 cm. Query gallbladder hydrops. Laboratory Results WBC 6.49 10^3/uL (3.29-11.43) 01/04/25 05:24 RBC 2.83 10^6/uL (3.85-5.65) L 01/04/25 05:24 Hgb 9.90 g/dL (11.27-16.99) L 01/04/25 05:24 Hct 30.6 % (37-53) L 01/04/25 05:24 MCV 108.1 fl (82-101) H 01/04/25 05:24 MCH 35.0 pg (27-33) H 01/04/25 05:24 MCHC 32.4 g/dL (30-55) D 01/04/25 05:24 RDW 16.4 % (12.1-15.1) H 01/04/25 05:24 Plt Count 46 10^3/cmm (157-399) L 01/04/25 05:24 MPV 12.5 fL (7.4-10.4) H 01/04/25 05:24 Neut % (Auto) 77.8 % 01/04/25 05:24 Lymph % (Auto) 14.6 % 01/04/25 05:24 [place] % (Auto) 6.3 % 01/04/25 05:24 Eos % (Auto) 0.8 % 01/04/25 05:24 Baso % (Auto) 0.2 % 01/04/25 05:24 Neut # (Auto) 5.05 10^3/uL (1.8-7.7) 01/04/25 05:24 Lymph # (Auto) 1.0 10^3/uL (0.8-4.8) 01/04/25 05:24 [place] # (Auto) 0.4 10^3/uL (0.2-0.9) 01/04/25 05:24 Eos # (Auto) 0.1 10^3/uL (0.0-0.8) 01/04/25 05:24 Baso # (Auto) 0.0 10^3/uL (0.0-0.1) 01/04/25 05:24 Nucleated RBC % (auto) 0 % 01/04/25 05:24 Nucleated RBCs # 0.0 /100WBC 01/04/25 05:24 PT 24.90 SECONDS (12.1-14.9) H 01/04/25 05:24 INR 2.11 (0.8-1.2) H 01/04/25 05:24 Sodium 136 mmol/L (136-145) 01/04/25 05:24 Potassium 3.4 mmol/L (3.5-5.1) L 01/04/25 05:24 Chloride 98 mmol/L (98-107) 01/04/25 05:24 Carbon Dioxide 29 mmol/L (22-29) 01/04/25 05:24 Anion Gap 12.4 (5-19) 01/04/25 05:24 BUN 15 mg/dL (8-23) 01/04/25 05:24 Creatinine 0.5 mg/dL (0.7-1.2) L 01/04/25 05:24 GFR Calculation Not Reportable 01/04/25 05:24 Glucose 77 mg/dL (65-115) 01/04/25 05:24 Calculated Osmolality 282 mOsm/kg (285-295) L 01/04/25 05:24 Calcium 7.4 mg/dL (8.5-10.5) L 01/04/25 05:24 Phosphorus 4.6 mg/dL (2.5-4.5) H 01/02/25 04:47 Magnesium 1.9 mg/dL (1.7-2.3) 01/02/25 04:47 Total Bilirubin 1.1 mg/dL (0.15-1.2) 01/04/25 05:24 AST 176 U/L (0-40) H 01/04/25 05:24 ALT 76 U/L (0-41) H 01/04/25 05:24 Alkaline Phosphatase 227 U/L (40-130) H 01/04/25 05:24 Ammonia 47 umol/L (16-60) 01/02/25 04:47 Total Protein 4.8 g/dL (6.6-8.7) L 01/04/25 05:24 Albumin 1.9 g/dL (3.5-5.2) L 01/04/25 05:24 Globulin 2.9 g/dL (1.3-4.6) 01/04/25 05:24 Lipase 123 U/L (13-60) H 01/01/25 15:37 Vitamin B12 > 2000 pg/mL (232-1245) H 01/01/25 15:37 Urine Color Dark yellow (Yellow) A 01/01/25 16:55 Urine Appearance Clear (CLEAR) 01/01/25 16:55 Urine pH 5.0 (5-7) 01/01/25 16:55 Ur Specific [place] 1.018 (1.005-1.030) 01/01/25 16:55 Urine Protein Negative (Negative) 01/01/25 16:55 Urine Glucose (UA) Negative (Normal) 01/01/25 16:55 Urine Ketones Negative (Negative) 01/01/25 16:55 Urine Blood Negative (Negative) 01/01/25 16:55 Urine Nitrate Negative (Negative) 01/01/25 16:55 Urine Bilirubin 1+ (Negative) H 01/01/25 16:55 Urine Urobilinogen 1.0 mg/dL (Negative) 01/01/25 16:55 Ur Leukocyte Esterase Negative (Negative) 01/01/25 16:55 Urine RBC 0-4 /hpf (0-2) H 01/01/25 16:55 Urine WBC 0-4 /hpf (0-5) H 01/01/25 16:55 Ur Squamous Epith Cells 0-4 /hpf (0-5) H 01/01/25 16:55 Urine Bacteria Trace /hpf (NONE) 01/01/25 16:55 Urine Mucus None /hpf 01/01/25 16:55 Salicylates < 0.3 mg/dL (3-10) L 01/01/25 15:37 Urine Opiates Screen Negative ng/mL (Negative) 01/01/25 16:55 Acetaminophen < 5.0 ug/mL (10-30) L 01/01/25 15:37 Ur Barbiturates Screen Negative ng/mL (Negative) 01/01/25 16:55 Ur Phencyclidine Scrn Negative ng/mL (Negative) 01/01/25 16:55 Ur Amphetamines Screen Negative ng/mL (Negative) 01/01/25 16:55 U Benzodiazepines Scrn Negative ng/mL (Negative) 01/01/25 16:55 Urine Cocaine Screen Negative ng/mL (Negative) 01/01/25 16:55 U Marijuana (THC) Screen Negative ng/mL (Negative) 01/01/25 16:55 Ethyl Alcohol < 10 mg/dL (0-10) 01/01/25 15:37 Hepatitis A IgM Ab Non-reactive (Nonreactive) 01/03/25 04:20 Hep Bs Antigen Non-reactive (Nonreactive) 01/03/25 04:20 Hep Bs Antibody < 3.5 (11.5-1000) L 01/03/25 04:20 Hep B Core Total Ab Non-reactive (Nonreactive) 01/03/25 04:20 Hepatitis C Antibody Non-reactive (Nonreactive) 01/03/25 04:20 Influenza A (PCR) Negative (Negative) 01/01/25 16:25 Influenza Type B (PCR) Negative (Negative) 01/01/25 16:25 RSV (PCR) Negative (Negative) 01/01/25 16:25 SARS-CoV-2 (PCR) Negative (Negative) 01/01/25 16:25 Vitals Last Vital Signs Temp 98.0 F 01/04/25 15:43 Pulse 71 01/04/25 15:43 Resp 15 01/04/25 15:43 BP 123/62 01/04/25 15:43 Pulse Ox 94 01/04/25 15:43 O2 Del Method Room Air 01/04/25 15:43 Discharge Plan Discharge Patient Disposition: Xfer SNF Condition: Stable Prescriptions: New thiamine HCl (vitamin B1) 100 mg tablet 100 mg PO DAILY 30 Days Qty: 30 0RF lactulose 10 gram/15 mL solution 10 g PO BID PRN (Reason: constipation) Qty: 3785 0RF Continued (DME) AFO for Right ankle See Rx Instructions .Route .MEDSUPPLY Qty: 1 0RF Rx Instructions: High Priority Thank You! Enema Disposable 19-7 gram/118 mL Enema 118 ml DC DAILY PRN (Reason: Constipation) carvedilol 6.25 mg Tablet 6.25 mg PO BID Rx Instructions: must administer with a meal/food polyethylene glycol 3350 [Miralax] 17 gram Powder In Packet 17 g PO DAILY sennosides-docusate sodium [Senna-S] 8.6-50 mg Tablet 1 tab-cap PO DAILY magnesium hydroxide [Milk of Magnesia] 400 mg/5 mL Suspension 400 mg PO DAILY bisacodyl 10 mg Suppository 10 mg DC DAILY PRN (Reason: Constipation) docusate sodium [Colace] 100 mg Capsule 100 mg PO DAILY trazodone 50 mg tablet 50 mg PO DAILY terazosin 1 mg capsule 1 mg PO DAILY Held oxycodone-acetaminophen 10-325 mg Tablet 1 tab PO Q4H PRN (Reason: Pain) Hold Instructions: Resume on 01/11/25. Discontinued furosemide 20 mg Tablet 20 mg PO DAILY aspirin 81 mg Capsule 81 mg PO DAILY warfarin 2.5 mg tablet See Rx Instructions .ROUTE .COMPLEX Rx Instructions: take 1/2 a tablet every day ,on take 1 whole tablet . Discharge Orders: Discharge Order (Routine); Ordered 01/04/25 Ordered By: Yasmeen Freire Referrals: [facility] [Outside] Emanuel Vasquez [Primary Care Provider] - 4-7 days Discharge Diet: Usual diet Discharge Activity: Resume usual activity Patient Instructions: Altered Mental Status (ED), Opioid Safety Discharge Attestations Time Spent in Discharge Care*: greater than 30 min Quality Metrics Clinical Quality Measures [ No reported AMI, CVA or VTE this stay] Coding Level of Care Code Acute Code for Chg Fwd Diagnoses Alcohol myopathy G72.1 Wernickes encephalopathy E51.2 Coagulopathy D68.9 MAGDALENA (acute kidney injury) N17.9
[2025-01-04 18:30] LABS: Thyroid Stimulating Hormone 18.79 uIU/mL (0.27-4.20)
== END 2025-01-04 20:01 | disposition skilled nursing facility (03) | DRG 92 ==
LOC: ER 17:35 → MEDSURG 18:30
PROVIDERS: Internal Medicine; Admitting Provider Student in an Organized Health Care Education/Training Program; Emergency Provider Family Medicine; PCP Family Medicine; Visit Provider Student in an Organized Health Care Education/Training Program
DX: G72.1 Alcoholic myopathy (principal); D68.9 Coagulation defect, unspecified; E51.2 Wernicke's encephalopathy; N17.9 Acute kidney failure, unspecified; L97.929 Non-pressure chronic ulcer of unspecified part of left lower leg with unspecified severity; L97.919 Non-pressure chronic ulcer of unspecified part of right lower leg with unspecified severity; D64.9 Anemia, unspecified; D69.6 Thrombocytopenia, unspecified; E86.0 Dehydration; K74.60 Unspecified cirrhosis of liver; I27.20 Pulmonary hypertension, unspecified; K76.82 Hepatic encephalopathy; I11.0 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 heart disease with heart failure; I50.9 Heart failure, unspecified; N40.0 Benign prostatic hyperplasia without lower urinary tract symptoms; M17.11 Unilateral primary osteoarthritis, right knee; I25.10 Atherosclerotic heart disease of native coronary artery without angina pectoris; Z86.718 Personal history of other venous thrombosis and embolism; Z79.01 Long term (current) use of anticoagulants; Z86.711 Personal history of pulmonary embolism; Z87.891 Personal history of nicotine dependence; Z79.82 Long term (current) use of aspirin
CPT/HCPCS: 36415; 70450; 71045; 76705; 80053; 80306; 80307; 81001; 82140; 82607; 83690; 83735; 84100; 84443; 85025; 85610; 86705; 86706; 86709; 86803; 87340; 87637; 93005; 96372; 97110; 97162; 97530; 99285; G0378; J2470; J3411; J7040

== ENCOUNTER → 2025-05-22 10:44 | Outpatient (BNVA) | payer MEDICARE, OTHER, SELFPAY | PROVIDERS: PCP Family Medicine; Visit Provider Student in an Organized Health Care Education/Training Program | DX: R63.4 Abnormal weight loss (principal); R10.9 Unspecified abdominal pain | CPT/HCPCS: 99204 ==

== ENCOUNTER → 2025-05-26 13:55 | Outpatient (BNVA) | payer MEDICARE, OTHER, SELFPAY | PROVIDERS: PCP Family Medicine; Visit Provider Specialist | DX: M17.11 Unilateral primary osteoarthritis, right knee (principal) | CPT/HCPCS: 73560; 73565; 99214 ==

== ENCOUNTER → 2025-06-20 11:25 | Outpatient (BNVA) | payer MEDICARE, SELFPAY | PROVIDERS: PCP Family Medicine; Visit Provider Family Medicine | DX: Z01.818 Encounter for other preprocedural examination (principal) | CPT/HCPCS: 80053; 85025; 93005 ==

== ENCOUNTER 2025-07-01 10:29 | Day surgery (SDC) | payer MEDICARE, OTHER, SELFPAY ==
[2025-07-01 10:48] VITALS: BP 141/68; PULSE 73; RESP 16; TEMP 36.1; O2SAT 95
--- NOTE | 2025-07-01 11:21 | W.PM.OPSFHP ---
Same Day Surgery H&P Indication for Procedure/HPI DATE OF PROCEDURE: July 01, 2025 CHIEF COMPLAINT/INDICATIONFOR SURGICAL PROCEDURE: weight loss, abdominal pain PREOP DIAGNOSIS: weight loss, abdominal pain PLANNED PROCEDURE: Operation Date: 07/01/25 11:45 Proposed Procedures p EGD EGD with Biopsy 55148 15571 G0105 R63.4 R10.9(Not Applicable) - Merrick Buckley MD s Colonoscopy(Not Applicable) - Merrick Buckley MD Medications/Allergies* Home Medications ?Medication ?Instructions ?Recorded ?Confirmed ?Type carvedilol 6.25 mg tablet 6.25 mg PO BID 01/06/22 06/27/25 History docusate sodium 100 mg capsule 100 mg PO DAILY 01/06/22 06/27/25 History (Colace) oxycodone-acetaminophen 10 mg-325 1 tab PO Q4H PRN Pain 01/06/22 06/27/25 History mg tablet Held on 01/04/25. Instructions: Resume on 01/11/25. polyethylene glycol 3350 17 gram 17 g PO DAILY 01/06/22 06/27/25 History oral powder packet (Miralax) sennosides 8.6 mg-docusate sodium 1 tab-cap PO DAILY 01/06/22 06/27/25 History 50 mg tablet (Senna-S) sodium phosphates 19 gram-7 118 ml [place] DAILY PRN Constipation 01/06/22 06/27/25 History gram/118 mL enema (Enema Disposable) terazosin 1 mg capsule 1 mg PO DAILY 01/01/25 06/27/25 History trazodone 50 mg tablet 50 mg PO DAILY 01/01/25 06/27/25 History Allergies/Adverse Reactions Allergy/AdvReac Type Severity Reaction Status Date / Time Sulfa (Sulfonamide Allergy ALGY-Redness Verified 06/27/25 08:47 Antibiotics) of Skin Current Medications: Generic Name Dose Route Start Last Admin Trade Name Freq PRN Reason Stop Dose Admin Sodium Chloride 1,000 mls @ 15 mls/hr 07/01/25 10:35 07/01/25 11:01 Sodium Chloride 0.9% IV 07/02/25 10:34 15 mls/hr .Q24H PRN Administration COLONOSCOPY FLUIDS Pertinent History/Comorbid Conditions* Medical History (Updated 05/22/25 @ 13:32 by Merrick Buckley MD) PTTD (posterior tibial tendon dysfunction) Primary osteoarthritis of right knee Left fibular fracture Bimalleolar fracture of right ankle Benign prostatic hyperplasia without lower urinary tract symptoms Constipation Gastro-esophageal reflux disease without esophagitis Generalized anxiety disorder 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 heart disease with heart failure 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 Muscle weakness Fracture of right lower leg Repeated falls Chronic 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 Pertinent Exam Findings alert, oriented x 3, clear to auscultation bilaterally, regular rate & rhythm and procedure specific exam findings abdomen soft, nt, nd Recommendations Risks and benefits of procedure reviewed and Patient/family agree to proceed Surgery/Procedure today Coding Level of Care Code Acute Code for Chg Fwd
--- NOTE | 2025-07-01 11:30 | ANES.PREANE2 ---
Pre-Anesthetic Assessment Height/Weight: Height 1.8 m Weight 68.039 kg Temp Pulse Resp BP Pulse Ox O2 Del Method 97.0 F L 73 16 141/68 95 Room Air 07/01/25 10:48 07/01/25 10:48 07/01/25 10:48 07/01/25 10:48 07/01/25 10:48 07/01/25 10:48 Preop Diagnosis: weight loss, abdominal pain Operation Date: 07/01/25 11:45 Proposed Procedures p EGD EGD with Biopsy [id number] G0105 R63.4 R10.9(Not Applicable) - Merrick Buckley MD s Colonoscopy(Not Applicable) - Merrick Buckley MD Was Beta Mary taken within 24 hours: N/A Was Clonidine taken within 24 hours: N/A Last intake: Intake Last Liquid Date 07/01/25 Last Liquid Time 10:00 Last Solid Date 06/30/25 Last Solid Time 08:00 Social Tobacco and No alcohol Exam alert, oriented x 3, clear to auscultation bilaterally and regular rate & rhythm Airway Submandibular: within normal limits Cervical ROM: within normal limits Mallampati: Class II Dentition: full History/ROS No significant history except as noted and No significant complaints Pulmonary None reported CV/HEM Coronary Artery Disease (Stents) None reported Hepatic None reported GI None reported Abd pain Metabolic None reported Musc/skel None reported Neuropsych None reported Anesthetic Plan ASA status: 2 Anesthesia: Anesthesia Evaluation and MAC Risk of > 500 ml blood loss (7ml/kg in children): No Medications/Allergies Home Medications ?Medication ?Instructions ?Recorded ?Confirmed ?Last Taken ?Type carvedilol 6.25 mg tablet 6.25 mg PO BID 01/06/22 06/27/25 07/01/25 History docusate sodium 100 mg capsule 100 mg PO DAILY 01/06/22 06/27/25 06/30/25 History (Colace) oxycodone-acetaminophen 10 mg-325 1 tab PO Q4H PRN Pain 01/06/22 06/27/25 07/01/25 History mg tablet Held on 01/04/25. Instructions: Resume on 01/11/25. polyethylene glycol 3350 17 gram 17 g PO DAILY 01/06/22 06/27/25 06/30/25 History oral powder packet (Miralax) sennosides 8.6 mg-docusate sodium 1 tab-cap PO DAILY 01/06/22 06/27/25 06/30/25 History 50 mg tablet (Senna-S) sodium phosphates 19 gram-7 118 ml [place] DAILY PRN Constipation 01/06/22 06/27/25 06/30/25 History gram/118 mL enema (Enema Disposable) AFO for Right ankle #1 ea 03/04/22 05/26/25 Unknown Rx terazosin 1 mg capsule 1 mg PO DAILY 01/01/25 06/27/25 06/30/25 History trazodone 50 mg tablet 50 mg PO DAILY 01/01/25 06/27/25 06/30/25 History lactulose 10 gram/15 mL oral 10 g (15 mL) PO BID PRN 01/04/25 06/27/25 06/30/25 Rx solution constipation #3,785 mL Allergies Allergy/AdvReac Type Severity Reaction Status Date / Time Sulfa (Sulfonamide Allergy ALGY-Redness Verified 06/27/25 08:47 Antibiotics) of Skin Current Medications Generic Name Dose Route Start Last Admin Trade Name Freq PRN Reason Stop Dose Admin Sodium Chloride 1,000 mls @ 15 mls/hr 07/01/25 10:35 07/01/25 11:01 Sodium Chloride 0.9% IV 07/02/25 10:34 15 mls/hr .Q24H PRN Administration COLONOSCOPY FLUIDS PFSH Anesthesia Medical History PTTD (posterior tibial tendon dysfunction) Primary osteoarthritis of right knee Left fibular fracture Bimalleolar fracture of right ankle Benign prostatic hyperplasia without lower urinary tract symptoms Constipation Gastro-esophageal reflux disease without esophagitis Generalized anxiety disorder 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
[2025-07-01 12:03] VITALS: BP 101/48; PULSE 59; RESP 16; TEMP 36.4; O2SAT 99
[2025-07-01 12:18] VITALS: BP 106/52; PULSE 62; RESP 16; O2SAT 99
--- NOTE | 2025-07-01 12:45 | ANE.PACU2 ---
Inpatient post-anesthesia follow up: Airway intact: Yes Vital signs: Temperature 97.6 F Pulse Rate 62 Respiratory Rate 16 Blood Pressure 106/52 Pulse Oximetry 99 Oxygen Delivery Me thod Room Air Oxygen Flow Rate Fraction of Inspir ed Oxygen Hydration adequate: Yes Nausea and vomiting: No Pain level: 1 Mental status: Baseline
== END 2025-07-01 12:46 | disposition home or self-care (01) ==
PROVIDERS: PCP Family Medicine; Visit Provider Student in an Organized Health Care Education/Training Program
PROC: 0DJ08ZZ Inspection of Upper Intestinal Tract, Via Natural or Artificial Opening Endoscopic (ICD-10-PCS; principal; 2025-07-01 11:45)
PROC: 0DJD8ZZ Inspection of Lower Intestinal Tract, Via Natural or Artificial Opening Endoscopic (ICD-10-PCS; CPT 45378; 2025-07-01 11:45)
DX: R10.9 Unspecified abdominal pain (principal); R63.4 Abnormal weight loss; Z68.20 Body mass index [BMI] 20.0-20.9, adult; K29.50 Unspecified chronic gastritis without bleeding; K21.9 Gastro-esophageal reflux disease without esophagitis; K59.00 Constipation, unspecified; F41.9 Anxiety disorder, unspecified; I11.0 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 heart disease with heart failure; I50.9 Heart failure, unspecified; E78.5 Hyperlipidemia, unspecified; E03.9 Hypothyroidism, unspecified; I25.10 Atherosclerotic heart disease of native coronary artery without angina pectoris; F32.9 Major depressive disorder, single episode, unspecified; Z95.5 Presence of coronary angioplasty implant and graft; Z79.891 Long term (current) use of opiate analgesic
CPT/HCPCS: 43239; 45378; 88305; 88342; J2704; J7030

== ENCOUNTER → 2025-07-15 13:46 | Outpatient (BNVA) | payer MEDICARE, OTHER, SELFPAY | PROVIDERS: PCP Family Medicine; Visit Provider Internal Medicine Cardiovascular Disease | DX: I44.7 Left bundle-branch block, unspecified (principal); I25.10 Atherosclerotic heart disease of native coronary artery without angina pectoris; I87.2 Venous insufficiency (chronic) (peripheral); Z87.891 Personal history of nicotine dependence; I11.0 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 heart disease with heart failure; I50.9 Heart failure, unspecified | CPT/HCPCS: 99204 ==

== ENCOUNTER → 2025-07-17 12:11 | Outpatient (BNVA) | payer MEDICARE, OTHER, SELFPAY | PROVIDERS: PCP Family Medicine; Visit Provider Student in an Organized Health Care Education/Training Program | DX: Z09 Encounter for follow-up examination after completed treatment for conditions other than malignant neoplasm (principal) | CPT/HCPCS: 99213 ==

== ENCOUNTER → 2025-08-15 11:39 | Outpatient (BNVA) | payer MEDICARE, OTHER, SELFPAY | PROVIDERS: PCP Family Medicine; Visit Provider Internal Medicine Cardiovascular Disease | DX: Z45.02 Encounter for adjustment and management of automatic implantable cardiac defibrillator (principal) | CPT/HCPCS: 93296 ==

== ENCOUNTER → 2025-10-02 13:36 | Outpatient (BNVA) | payer MEDICARE, OTHER, SELFPAY | PROVIDERS: PCP Family Medicine; Visit Provider Internal Medicine Cardiovascular Disease | DX: I25.10 Atherosclerotic heart disease of native coronary artery without angina pectoris (principal); I25.5 Ischemic cardiomyopathy; I48.20 Chronic atrial fibrillation, unspecified; I87.8 Other specified disorders of veins; R63.4 Abnormal weight loss; L89.302 Pressure ulcer of unspecified buttock, stage 2; I10 Essential (primary) hypertension; Z95.810 Presence of automatic (implantable) cardiac defibrillator; Z87.891 Personal history of nicotine dependence; R06.09 Other forms of dyspnea; Z79.01 Long term (current) use of anticoagulants; R53.1 Weakness; I48.91 Unspecified atrial fibrillation; I25.118 Atherosclerotic heart disease of native coronary artery with other forms of angina pectoris; I44.7 Left bundle-branch block, unspecified; Z45.02 Encounter for adjustment and management of automatic implantable cardiac defibrillator | CPT/HCPCS: 36415; 80053; 85025; 85610; 86850; 86900; 99215 ==

== ENCOUNTER 2025-10-16 13:06 | Outpatient (CLI) | payer MEDICARE, OTHER, SELFPAY ==
--- NOTE | 2025-10-16 12:45 | USCV_ITS ---
Nitin Gray Age: 80 Gender: M : 1945 Exam Date: 10/16/2025 13:22 Ordering Phys: Jono Ortez MD ([email or web address]) Technologist: Exam Location: [facility] – [place], [place] Indication: cp sob BP: 120 / 70 HR: 64 Rhythm: Sinus Technical Quality: Adequate MEASUREMENTS (Male / Female) Normal Values 2D ECHO LVOT Diameter 2.0 cm LV Ejection Fraction MOD 4C 36.2 % LV Ejection Fraction MOD 2C 42.6 % LV Ejection Fraction 2C AL 43.9 % LA Diameter 5.1 cm RA Systolic Volume 4C AL 50.7 ml RA Systolic Volume 4C MOD 48.6 ml Aorta at Sinotubular Diameter 3.4 cm IVC Diameter 1.1 cm M-MODE LA Ao Ratio MM 1.0 AV Cusp Separation MM 1.5 cm DOPPLER AV Peak Velocity 202.0 cm/s LVOT Peak Velocity 93.0 cm/s AV Area Cont Eq vti 1.3 cm squared AV Area Cont Eq pk 1.4 cm squared MV Peak Velocity 112.0 cm/s MV Area PHT 4.4 cm squared Mitral E to A Ratio 0.5 TV Peak Velocity 202.0 cm/s TR Peak Velocity 215.0 cm/s TR Peak Gradient 18.5 mmHg TV Peak E Velocity 74.0 cm/s PV Peak Velocity 107.0 cm/s FINDINGS Left Ventricle Diffuse hypokinesia of the left ventricle with an ejection fraction of 36% by MOD Mildly dilated LV cavity.Grade I/IV diastolic dysfunction (abnormal relaxation filling pattern), normal to mildly elevated filling pressures. Right Ventricle Catheter/pacemaker wire in the right ventricular cavity. Right Atrium Catheter/pacemaker wire in the right atrial cavity. Mildly increased right atrial size. Left Atrium Moderately increased left atrial volume 42 ml/m squared. IA Septum Normal appearance of the interatrial septum. Mitral Valve Mild mitral annular calcification. Aortic Valve Thickened aortic valve. Tricuspid Valve No gross abnormalities noted Pulmonic Valve Pulmonic valve not well visualized. Pericardium No pericardial effusion. Aorta Normal aortic annulus size. IVC Normal inferior vena cava. CONCLUSIONS Diffuse hypokinesia of the left ventricle with an ejection fraction of 36% by MOD Mildly dilated LV cavity.Grade I/IV diastolic dysfunction (abnormal relaxation filling pattern), normal to mildly elevated filling pressures. Pacemaker /defibrillator wire in the right atrium and right ventricle Moderately increased left atrial volume 42 ml/m squared. Mildly increased right atrial size. Thickened aortic valve. Mild mitral annular calcification. There is no pericardial effusion. No similar previous studies are available for comparison Dr Jono Ortez MD [facility] (Electronically Signed) Final Date: 19 October 2025 19:49 S
== END 2025-10-16 13:07 | disposition home or self-care (01) ==
LOC: RAD 13:07
PROVIDERS: PCP Family Medicine; Visit Provider Internal Medicine Cardiovascular Disease
DX: R06.09 Other forms of dyspnea (principal)
CPT/HCPCS: 93306

== ENCOUNTER 2025-10-22 07:26 | Outpatient (CLI) | payer MEDICARE, OTHER, SELFPAY ==
[2025-10-22] VITALS (17 sets, daily range): BP systolic 120–164; BP diastolic 57–89; PULSE 56–70; RESP 14–20; TEMP 36.3–36.7; O2SAT 92–99; BMI 20.2
[2025-10-22 08:10] LABS: Hematocrit 36.2 % (37-53); Hemoglobin 12.10 g/dL (11.27-16.99); Mean Corpuscular HGB Conc 33.4 g/dL (30-55); Mean Corpuscular Hemoglobin 30.6 pg (27-33); Mean Corpuscular Volume 91.4 fl (82-101); Nucleated Red Blood Cells % 0 %; Platelet Count 134 10^3/cmm (157-399); Red Blood Count 3.96 10^6/uL (3.85-5.65); White Blood Count 5.45 10^3/uL (3.29-11.43)
--- NOTE | 2025-10-22 08:30 | XACV_ITS ---
Exam Room: 2 Ht: 180 cm Wt: 66 kg BSA: 1.81 m2 Gender: Male : 1945 Any Known Allergies: Sulfa Exam Priority: Routine Procedure(s): Procedure Description: Diagnostic procedure Procedure Description: Miscellaneous Procedure Description: Generator Replacement AICD (EOL) Pérez HEARD; Diagnostic Cath Status: Elective Diagnostic Findings * The patient had a ICD revision today. Please see separate report for detail. Clinical Evaluation EBL: 5mL-10mL Procedural Details Pre-Procedure Time Out. Identified patient by full name and date of as verbalized by the patient/guarantor. Does the consent match the physician's order: Yes. Accurate & Complete Informed Consent: Yes. Inpatient/Outpatient History & Physical on Chart: Yes. If H&P is completed, is and addenduem needed: No; If yes, is the addendum complete: N/A. Visualize and Verify Site with Patient/Guarantor: N/A. Relevant Radiology Images available: Yes. Pre-op teaching completed and patient verbalized understanding. The risks, benefits, and alternatives of sedation and/or procedure were discussed by physician. The patient agrees to continue. Procedure started. Correct patient, site and procedure confirmed by cath team. PERRLA. Strong, equal hand convex grinder bilaterally. Lungs clear x 5 lobes. IV Site on Arrival: 20 gauge in the right anticubital. IV Fluids: 0.9% NaCl at KVO. 0 mL infused prior to laborer drying department. Oxygen started at 2liters/min via nasal canula. bilateral subclavian region was prepped with chloroprep then draped in the usual sterile fashion. Baseline sample Acquired. HR: 61 BPM. Physician arrived. Supplies: Cath pack, micropunture, bovie pen, 2-0 silk, 0 surgilon, 3-0 vicryl, 4-0 vicryl. Pre sponge count: 55. Pre sharps count: 18. Pre instrument count: 11. Physician scrubbed in. Immediate Pre-Procedure Time Out. Correct Patient: Yes; Correct Procedure: Yes; Correct Site: Yes; Correct Patient Position: Yes; Correct Supplies: Yes; Dried Flammable Prep: Yes; Blood Products Available: N/A;. Lidocaine 1% with Epi infiltrated to Left subclavian area. Incision and pacer pocket made in left subclavian region. Lidocaine 1% with Epi infiltrated to Left subclavian area. Old generator removed from the pacer pocket. New Generator attached and tested. Antibiotic flush used to clean pacer pocket. TYRX Absorbable Antibacterial Envelope placed around the generator. LOT# [id number] EXP: 05/08/2026 Generator secured with surgilon. Subcutaneous tissue closed with 3-0 vicryl. Cutaneous tissue closed with 4-0 vicryl. All final counts correct. Generator Lot# [id number] EXP: 01/10/2027. Dr. Ortez scrubbed out. left subclavian pocket dressed per physician order. No bleeding or hematoma noted at left subclavian pocket. Medication's Wasted: Lidocaine 1% = 10 mL. Total IV fluids: 50 mL. Post-op diagnosis: ICD Gen Change. Estimated blood loss: 5mL-10mL. Responsiveness - Normal response to verbal stimuli; alert and oriented, PERRLA. Airway - Unaffected, no intervention required; spontaneous ventilation. Circulation: W/N/L, pulses unchanged. Vital chart was stopped. Nausea/Vomiting: No. Procedure completed. Patient transferred by stretcher to CPRU. Procedure Medications Start: 9:43 AM Stop: 9:43 AM Medication: Ancef Amount: 1 g Route: I.V. Start: 9:58 AM Stop: 9:58 AM Medication: Versed 1 mg and Fentanyl 25 mcg Amount: 1 Route: I.V. Start: 9:50 AM Stop: 9:50 AM Medication: Versed 1 mg and Fentanyl 25 mcg Amount: 1 Route: I.V. Start: 10:02 AM Stop: 10:02 AM Medication: Versed Amount: 1 mg Route: I.V. Start: 10:26 AM Stop: 10:26 AM Medication: Fentanyl Amount: 25 mcg Route: I.V. Start: 10:35 AM Stop: 10:35 AM Medication: Fentanyl Amount: 25 mcg Route: I.V. I, the attending physician, have reviewed and verified all procedure medications. Yes, all medications given per verbal order History/Risk Factors Hypertension: No Dyslipidemia: No Peripheral Arterial Disease (PAD): No Myocardial Infarction ([place]): No Obesity: No Renal Disease: No Tobacco Use: Former Prior Interventions PCI: No CABG: No Valve Surgery: No Report Signatures Finalized by Dr Jono Ortez MD [facility] on 10/22/2025 01:59 PM
--- NOTE | 2025-10-22 09:40 | P.HPUD_ITS ---
Surgery/Procedure H&P Update DATE OF PROCEDURE: October 22, 2025 DATE H&P PERFORMED: 10/02/25 H&P UPDATE INFORMATION: I have reviewed H&P completed within last 30 days, I have examined patient prior to procedure and No changes to prior documentation PREOP DIAGNOSIS: Device VENTILATING EQUIPMENT INSTALLER PRIMARY INDICATION FOR PROCEDURE: The device was found to be an VENTILATING EQUIPMENT INSTALLER during routine follow-up evaluation PLANNED PROCEDURE: Operation Date: 10/22/25 08:30 Proposed Procedures p Implantable Cardioverter Defibrillator Generator Change(Not Applicable) - Jono Ortez MD PATIENT REASSESSED PRIOR TO SEDATION, WITH NO CHANGE NOTED: Yes PHYSICAL EXAM: alert, oriented x 3, clear to auscultation bilaterally and regular rate & rhythm AIRWAY EVAL/ANESTHESIA PLAN: normal airway, see other exam findings, ASA II, Monitored Anesthesia, Local Anesthesia, Risks, benefits & alternatives of sedation and/or procedure discussed and Patient agrees to continue as planned
--- NOTE | 2025-10-22 11:03 | PM.OP ---
Operative Report Date of procedure: October 22, 2025 Surgeon: Jono Ortez MD Procedure: PROCEDURE: ICD REVISION PREOPERATIVE DIAGNOSIS: ICD elective replacement indication. POSTOPERATIVE DIAGNOSIS: ICD elective replacement indication. ESTIMATED BLOOD LOSS: None COMPLICATIONS: None. BRIEF HISTORY: The patient is 80-year-old white [male] who had a ICD implantation for cardiomyopathy/primary prevention/bradycardia. The patient was found to have elective replacement indication, during routine office followup evaluation. For further management of patient's condition and for the [symptomatic bradycardia], the patient required an ICD revision. Patient has a history of cardiomyopathy, atrial fibrillation The procedure was explained to the patient and his in detail with the risks and benefits. The risks of bleeding, hematoma, vascular injury, infection and other concomitant complications were explained in detail, which the patient understood well and consented to proceed. PROCEDURES PERFORMED: 1. Explantation of the old ICD device . 2. Implantation of the new ICD device The patient brought to the Cardiac Cattle Inspector. The left side of the neck and the subclavian area were cleaned and draped in a sterile fashion. 1% Xylocaine was used for local anesthetic agent. A 2 inch long incision was made just below the previous pacemaker scar. By sharp and blunt dissection, the ICD pocket was accessed. The old generator was delivered from the pocket. The generator was detached from the lead[s]. As we took out the device from the pocket, it was found out that the RV defibrillation lead is broken. Considering the complexity and putting in a new lead it was decided not to do the lead revision at this point. This may be considered at a later right later time. The new generator was attached to the leads. The RV coil lead port was plugged with the broke off lead. The ICD pocket was copiously irrigated with vancomycin solution. Complete hemostasis was achieved. The lead was positioned behind the generator and the generator was attached to the pectoralis fascia by suturing with 0 Surgilon. Sponge counts were confirmed. The ICD pocket was closed in layers. Skin was approximated using 4-0 Vicryl. EXPLANTED DEVICE: ICD Device: Date of implant 05/21/2014 Brand: Darline TOWNSEND DR. Model number: DD BB 1D1. Serial number: [id number]. IMPLANTED DEVICES: 1.Ventricular Lead: Date of implantation: 11/30/2007 Model number: [id number] Serial number: [id number] Make: [[employer]tronic]. 2. Atrial Lead Date of implantation 11/30/2007 Model number 5076/52 Serial number [id number] 3.Implanted Generator: Date of implantation 10/22/2025 Brand: [place] XT DR GEOFF Callahan. Model number: DD PA 2D1 Serial number: [id number] Stimulation Threshold: Through the Device--the ventricular sensing was 8 point millivolts. Lead impedance was 399 ohms and the pacing threshold was 1.5 volts at 0.4 milliseconds. The atrial sensing was 1.8 millivolts. The lead impedance was 437 ohms and the pacing threshold was 0.75 volts at 0.4 ms. the patient was found to have the RV coil broken The pacemaker was set for [AAIR/DDDR] mode with an upper rate of [130] and a lower rate of [50]. The DFT testing was not done Since the RV coil is broken, the defibrillation programming is turned off. Apparently the patient has not had any ICD discharges since the implant. 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 No active infection. It was decided to use an antibiotic pouch Tyrex REF [id number], LOT # [id number]. Expiry date 05/08/2026
--- NOTE | 2025-10-22 11:20 | PC.NURSE ---
Arrived to CPRU 4 post pacemaker/ICD revision . Awaiting floor assignment. Arrived alert and oriented X 3. Breathing even and non-labored on room air. Denies incisional pain. Reports his normal mild pain to lower back. Reports 01/20. Assisted with repositioning and pillow under knees. Pressure dressing to left chest clean, dry, and intact. No signs of bleeding or hematoma. Placed on bedside monitor, call light in reach.
[2025-10-22 16:31] LABS: Hematocrit 34.5 % (37-53); Hemoglobin 11.70 g/dL (11.27-16.99); Mean Corpuscular HGB Conc 33.9 g/dL (30-55); Mean Corpuscular Hemoglobin 31.1 pg (27-33); Mean Corpuscular Volume 91.8 fl (82-101); Nucleated Red Blood Cells % 0 %; Platelet Count 123 10^3/cmm (157-399); Red Blood Count 3.76 10^6/uL (3.85-5.65); White Blood Count 4.99 10^3/uL (3.29-11.43)
[2025-10-22] MEDS: ceFAZolin 2,000 mg SDV 2000 MG IVP (16:35)
[2025-10-22] MEDS: oxyCODONE-APAP 10-325 mg Tablet 1 TAB PO (18:34)
[2025-10-23] VITALS: BP 135/70; PULSE 62; RESP 17; TEMP 36.4; O2SAT 94
[2025-10-23] MEDS: ceFAZolin 2,000 mg SDV 2000 MG IVP ×2 (01:35→09:23)
[2025-10-23 04:00] VITALS: BP 153/66; PULSE 63; RESP 18; TEMP 37.6; O2SAT 95
[2025-10-23] MEDS: sennosides-docusate Tablet 1 TAB PO (04:59)
[2025-10-23 05:06] VITALS: RESP 16; O2SAT 94
[2025-10-23] MEDS: oxyCODONE-APAP 10-325 mg Tablet 1 TAB PO (05:06)
--- NOTE | 2025-10-23 06:00 | ECG_ITS ---
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 Measurements Intervals Warren Rate: 58 P: 41 MA: 213 QRS: -36 QRSD: 174 T: 122 QT: 457 QTc: 450 Interpretive Statements SINUS BRADYCARDIA WITH FIRST DEGREE AV BLOCK LEFT AXIS DEVIATION [QRS AXIS < -30] LEFT BUNDLE BRANCH BLOCK [120+ ms QRS DURATION, 80+ ms Q/S IN V1/V2, 85+ ms R IN I/aVL/V5/V6] Compared to ECG 06/20/2025 11:41:33 First degree AV block now present Sinus rhythm no longer present Electronically Signed On 10-23-2025 17:36:47 GL ACCOUNTANT by Jono Ortez M.D. [email or web address]
--- NOTE | 2025-10-23 06:49 | PM.PN ---
Subjective Subjective: Patient underwent the ICD revision yesterday. He had an uncomplicated postprocedure course. No hematoma bleeding from the revision site. No fever or chills. The device was interrogated this morning. The pacing and sensing function was found to be appropriate. Medications: Medication Review Details: Current Medications Aspirin (Aspirin 81 Mg Ec Tablet) 81 mg PO DAILY FORMERLY [facility], [facility]1983 Last Admin: 10/23/25 04:58 Dose: 81 mg Carvedilol (Carvedilol 6.25 Mg Tablet) 6.25 mg PO BID FOR[facility]LY [facility], [facility]1983 Last Admin: 10/23/25 04:59 Dose: 6.25 mg Cefazolin Sodium (Cefazolin 2,000 Mg Sdv) 2,000 mg IVP Q8H FOR[facility]LY [facility], 1928–1983; Protocol Stop: 10/23/25 09:01 Last Admin: 10/23/25 01:35 Dose: 2,000 mg Docusate Sodium (Docusate Sodium 100 Mg Capsule) 100 mg PO DAILY FOR[facility]LY [facility], [facility]1983 Last Admin: 10/23/25 04:58 Dose: 100 mg Furosemide (Furosemide 20 Mg Tablet) 20 mg PO DAILY FOR[facility]LY [facility] Last Admin: 10/23/25 06:16 Dose: Not Given Sodium Chloride (Sodium Chloride 0.9%) 1,000 mls @ 75 mls/hr IV .[id number] FOR[facility]LY [facility], 1928–1983 Last Admin: 10/23/25 06:17 Dose: 75 mls/hr Non-Formulary Medication (Hydroxyzine Hcl) 10 mg PO TID PRN PRN Reason: Itching Oxybutynin Chloride (Oxybutynin 5 Mg Tablet) 5 mg PO DAILY FOR[facility] Last Admin: 10/23/25 04:59 Dose: 5 mg Oxycodone/Acetaminophen (Oxycodone-Apap 10-325 Mg Tablet) 1 tab PO Q4H PRN PRN Reason: PAIN Last Admin: 10/23/25 05:06 Dose: 1 tab Polyethylene Glycol (Polyethylene Glycol 3350 Pkt 17 Gm) 17 gm PO DAILY PRN PRN Reason: CONSTIPATION Potassium Chloride (Potassium Chloride Er 10 Meq Tablet) 10 meq PO DAILY FOR[facility] Last Admin: 10/23/25 04:59 Dose: 10 meq Senna/Docusate Sodium (Sennosides-Docusate Tablet) 1 tab PO DAILY [facility] Last Admin: 10/23/25 04:59 Dose: 1 tab Sodium Phosphate (Fleet Enema 133 Ml Enema) 118 ml TN DAILY PRN PRN Reason: CONSTIPATION Trazodone HCl (Trazodone 50 Mg Tablet) 100 mg PO DAILY BUTCH Last Admin: 10/23/25 06:16 Dose: Not Given Vitals/I&O/Wt Last Vital Signs Temp 99.7 F H 10/23/25 04:00 Pulse 63 10/23/25 04:00 Resp 16 10/23/25 05:06 BP 153/66 10/23/25 04:00 Pulse Ox 94 10/23/25 05:06 O2 Del Method Room Air 10/22/25 16:04 10/22/25 10/22/25 10/23/25 14:59 22:59 06:59 Intake Total 480 / 480 360 / 840 1000 / 1840 Output Total 450 / 450 500 / 950 350 / 1300 Balance 30 / 30 -140 / -110 650 / 540 Weight last 48 hrs Weight 159 lb 1 oz Weight 145 lb Weight 145 lb Physical Exam Narrative: GENERAL: The patient is alert and oriented times three. Not in any acute distress. HEENT: No significant pallor, icterus or lymphadenopathy.Oral cavity: There are no mucous membrane lesions. NECK: Trachea appears to be central. No masses noted. No JVD or thyromegaly appreciated. RESPIRATORY: Chest is symmetrical. No intercostals muscle retraction or any accessory muscle activation. There is no chest wall tenderness. Breath sounds are heard bilaterally. No rales or rhonchi heard. No evidence of any consolidation. The pacemaker revision site appears to have no hematoma or bleeding. BREASTS: Deferred. HEART: The heart sounds are normal. No S3 or S4. No significant murmurs. No pericardial rub ABDOMEN: No vessel pulsations or distention. No tenderness. No organomegaly appreciated. Bowel sounds are normally heard. : Deferred. RECTAL: Deferred. LYMPHATIC: No lymphadenopathy noted in the neck. EXTREMITIES: No edema or cyanosis. No clubbing. MUSCULOSKELETAL: No acute joint deformities or swelling SKIN: There are no significant rashes or ecchymosis NEUROPSYCHIATRIC: The patient is alert and oriented x3. Appears to be in a good mood. No tremors or rigidity noted. Data 10/22/25 15:30 Other Labs: Laboratory Last Values WBC 4.99 10^3/uL (3.29-11.43) 10/22/25 15:30 RBC 3.76 10^6/uL (3.85-5.65) L 10/22/25 15:30 Hgb 11.70 g/dL (11.27-16.99) 10/22/25 15: Hct 34.5 % (37-53) L 10/22/25 15: MCV 91.8 fl (82-101) 10/22/25 15: MCH 31.1 pg (27-33) 10/22/25 15: MCHC 33.9 g/dL (30-55) 10/22/25 15: RDW 13.5 % (12.1-15.1) 10/22/25 15: Plt Count 123 10^3/cmm (157-399) L 10/22/25 15: MPV 10.4 fL (7.4-10.4) 10/22/25 15:30 Neut % (Auto) 43.3 % 10/22/25 15: Lymph % (Auto) 36.3 % 10/22/25: [place] % (Auto) 10.2 % 10/22/25: Eos % (Auto) 9.2 % 10/22/25 15: Baso % (Auto) 0.8 % 10/22/25 15: Neut # (Auto) 2.16 10^3/uL (1.8-7.7) 10/22/25 15:30 Lymph # (Auto) 1.8 10^3/uL (0.8-4.8) 10/22/25 15:30 [place] # (Auto) 0.5 10^3/uL (0.2-0.9) 10/22/25 15:30 Eos # (Auto) 0.5 10^3/uL (0.0-0.8) 10/22/25 15:30 Baso # (Auto) 0.0 10^3/uL (0.0-0.1) 10/22/25 15: Nucleated RBC % (auto) 0 % 10/22/25 15:30 Nucleated RBCs # 0.0 /100WBC 10/22/25 15:30 A&P Assessment and plan 1. Elective replacement of implantable cardioverter-defibrillator (ICD) battery required: Patient has a replacement of the generator. The defibrillation function was turned off because of the lead fracture. Patient has no hematoma bleeding from the revision site. 2. Atherosclerosis of [place] coronary artery of [place] heart without angina pectoris: Patient is known to have atherosclerotic heart disease. Has not had any chest pain or any specific ischemic symptoms. May continue on the current measures. 3. Ischemic cardiomyopathy: The latest LV ejection fraction was 36%. Patient has no evidence of any heart failure. Will continue on the current treatment measures Need to consider treatment with Entresto as an outpatient. The patient develop any ventricular arrhythmia, need to consider lead revision 4. Chronic atrial fibrillation: Patient apparently had a Watchman device placed. However he been taking Coumadin for recurrent DVT/embolism. He had discussion with Dr. Dobson who was taking care of him in the senior care. Patient was in the senior care after a hospital admission for septic shock? Apparently he was taken off the warfarin at that time. He also was taken off the amiodarone probably for the same reason?. Patient is very concerned that these medications were not restarted. He had to be defibrillated in the past for atrial fibrillation?. So as per patient request, I started him on amiodarone and Coumadin. Apparently Dr. Vasquez started him on Eliquis but the patient could not afford this 5. Chronic venous stasis: Patient has a history of recurrent venous thrombosis. He seems to be taking the blood thinning medicine for this reason. He may continue on the conservative measures as well Plan: Coumadin 5 mg daily for 5 days followed by PT/INR and then adjust the dose Amiodarone 100 mg p.o. daily Keflex 500mg p.o. every 6 hours for 5 days along with multivitamin daily for 2 weeks Patient was given instructions about the post pacemaker care Will be seen back in the clinic in a week to check the device and the wound I will be seeing him in the office in 1 month PDMP PDMP Reviewed: Not Reviewed Attestations Medical Necessity Statement*: Discharge home today Coding Level of Care Code Acute Code for g Fwd Diagnoses Elective replacement of implantable cardioverter-defibrillator (ICD) battery required Z95.810 Atherosclerosis of [place] coronary artery of [place] heart without angina pectoris I25.10 Coronary Disease-Associated Artery/Lesion type: [place] artery Ischemic cardiomyopathy I25.5 Chronic atrial fibrillation I48.20 Atrial fibrillation type: unspecified chronic Chronic venous stasis I87.8
[2025-10-23 07:25] VITALS: BP 157/65; PULSE 59; TEMP 36.4; O2SAT 95
== END 2025-10-23 11:55 | disposition home health service (06) ==
LOC: CCL 07:30 → MEDSURG 12:59
PROVIDERS: PCP Family Medicine; Visit Provider Internal Medicine Cardiovascular Disease
DX: Z95.810 Presence of automatic (implantable) cardiac defibrillator (principal); I25.10 Atherosclerotic heart disease of native coronary artery without angina pectoris; I25.5 Ischemic cardiomyopathy; I48.20 Chronic atrial fibrillation, unspecified; I87.8 Other specified disorders of veins; Z79.82 Long term (current) use of aspirin; Z79.891 Long term (current) use of opiate analgesic; F41.9 Anxiety disorder, unspecified; E03.9 Hypothyroidism, unspecified; E78.5 Hyperlipidemia, unspecified; F32.9 Major depressive disorder, single episode, unspecified; Z91.81 History of falling; K21.9 Gastro-esophageal reflux disease without esophagitis; Z87.891 Personal history of nicotine dependence; Z82.49 Family history of ischemic heart disease and other diseases of the circulatory system
CPT/HCPCS: 33264; 36415; 85025; 93005; 97165; 99152; 99153; A4216; C1721; C1769; J0690; J2250; J3010; J3373; J7030; J7050; J9999; Q9967

== ENCOUNTER 2025-10-29 13:18 | Outpatient (CLI) | payer MEDICARE, OTHER, SELFPAY ==
--- NOTE | 2025-10-29 13:25 | XACV_ITS ---
Nitin Gray Age: 80 Gender: M : 1945 Exam Date: 10/29/2025 13:27 Ordering Phys: Jono Ortez MD ([email or web address]) Technologist: Exam Location: [facility] Indication: Findings Fluoroscopy was done to evaluate the lesions. Fluoroscopy was done in the anteroposterior view. Conclusions The broken defibrillator wire was identified The other leads were found to be intact. Dr Jono Ortez MD FAC (Electronically Signed) Final Date: 29 October 2025 19:51 S
--- NOTE | 2025-10-29 13:42 | PM.OP ---
Operative Report Date of procedure: October 29, 2025 Surgeon: Jono Ortez MD Procedure: Patient had a fluoroscopy examination of the defibrillator device. Apparently this patient was found to have a broken defibrillator coil, during the device revision last week. I discussed with the EP service at the [facility] regarding lead revision. They wanted an x-ray of the device and the leads. So the patient was brought back to the Chief Catalyst Operator to do this. Fluoroscopic pictures were taken. The broken defibrillator coil was identified. The information is sent to Dr. Ron at the [facility]
== END 2025-10-29 13:19 | disposition home or self-care (01) ==
PROVIDERS: PCP Family Medicine; Visit Provider Internal Medicine Cardiovascular Disease
DX: T82.110A Breakdown (mechanical) of cardiac electrode, initial encounter (principal); Y71.2 Prosthetic and other implants, materials and accessory cardiovascular devices associated with adverse incidents; I10 Essential (primary) hypertension; I25.10 Atherosclerotic heart disease of native coronary artery without angina pectoris; I25.5 Ischemic cardiomyopathy; I48.20 Chronic atrial fibrillation, unspecified; Z79.01 Long term (current) use of anticoagulants; Z79.82 Long term (current) use of aspirin; I87.8 Other specified disorders of veins; R63.4 Abnormal weight loss; L89.302 Pressure ulcer of unspecified buttock, stage 2; Z87.891 Personal history of nicotine dependence
CPT/HCPCS: 76000; 99024; 99214